=== PATIENT | male | born 1945 | race Caucasian/White ===

== ENCOUNTER 2018-04-16 08:09 | Day surgery (SDC) | payer MEDICARE, OTHER ==
[2018-04-16] VITALS (16 sets, daily range): BP systolic 99–140; BP diastolic 40–68
[~2018-04-16] VITALS: Ht 193 cm; Wt 101.7 kg
[~2018-04-16 08:09] MED LIST: ALLO100T PO; ASCO-261 PO; HYDR-3686 PO; INSU100V12 SQ; LACT10SO PO; LACT1CAP73 PO; LEVO125T PO; LORA-512 PO; LOSA50TA3 PO; OMEG1CAP2 PO; OMEP20TA5 PO; PROP10TA10 PO; RIFA550T PO; TEST150G2 TOP; URSO300C2 PO; ZINC50TA4 PO; ZOLP5TAB8 PO
[2018-04-16] MEDS ORDERED: normal saline 1000ml 1,000 ML IV PRN (08:30)
[2018-04-16 09:06] LABS: BASOPHILS % (AUTO) 0 % (0-1); EOSINOPHILS # (AUTO) 0.3 X10'3 (0-0.9); EOSINOPHILS % (AUTO) 9.3 % (0-6); HEMATOCRIT 26.7 % (42.0-52.0); HEMOGLOBIN 9.1 g/dl (14.0-17.9); LYMPHOCYTES # (AUTO) 0.8 X10'3 (1.1-4.8); LYMPHOCYTES % (AUTO) 27.8 % (21-51); MEAN CORPUSCULAR HEMOGLOBIN 32.4 PG (27.0-31.0); MEAN CORPUSCULAR HGB CONC 34.3 % (33.0-36.5); MEAN CORPUSCULAR VOLUME 94.6 FL (78-98); MEAN PLATELET VOLUME 9.7 FL (7.4-10.4); MONOCYTES # (AUTO) 0.3 X10'3 (0-0.9); MONOCYTES % (AUTO) 11.4 % (2-12); NEUTROPHILS # (AUTO) 1.5 X10'3 (1.8-7.7); NEUTROPHILS % (AUTO) 51.5 % (42-75); RED BLOOD COUNT 2.82 X10'6 (4.70-6.10); RED CELL DISTRIBUTION WIDTH 18.3 % (11.5-14.5); WHITE BLOOD COUNT 2.9 X10'3 (4.5-11.0)
[2018-04-16 09:47] LABS: INR 1.1 INR; PROTHROMBIN TIME 11.2 SECONDS (9.0-12.0)
[2018-04-16 09:50] LABS: PLATELET COUNT 43 X10'3 (140-440)
[2018-04-16] MEDS ORDERED: fentaNYL/PF 50MCG/1 ML 2ML syringe IV ONE (10:00)
[2018-04-16] MEDS ORDERED: MIDAZolam 1mg/ml 10ml vial IV ONE (10:00)
[2018-04-16 10:35] LABS: TOTAL CELLS COUNTED 100
[2018-04-16 10:39] LABS: ANISOCYTOSIS 2+; HYPOCHROMASIA 1+; PLATELET ESTIMATE DECREASED
[2018-04-16 10:40] LABS: TARGET CELLS 1+
[2018-04-16] MEDS ORDERED: normal saline 1000ml 1,000 ML IV SCH (11:38)
[2018-04-16] MEDS ORDERED: HYDROcodone/acetaminophen 5mg/325mg tablet PO PRN ×2 (11:40)
== END 2018-04-16 13:30 | disposition home or self-care (01) ==
LOC: SSTAY O 08:09
PROVIDERS: ATTEND Radiology Vascular & Interventional Radiology
DX: K73.8 Other chronic hepatitis, not elsewhere classified (principal); E83.118 Other hemochromatosis; D73.1 Hypersplenism; I10 Essential (primary) hypertension; J44.9 Chronic obstructive pulmonary disease, unspecified; E11.9 Type 2 diabetes mellitus without complications; G47.33 Obstructive sleep apnea (adult) (pediatric); E03.9 Hypothyroidism, unspecified; Z87.891 Personal history of nicotine dependence; Z79.4 Long term (current) use of insulin; Z98.890 Other specified postprocedural states; Z79.899 Other long term (current) drug therapy; Z88.8 Allergy status to other drugs, medicaments and biological substances
CPT/HCPCS: 36415; 47000; 76942; 85025; 85610; J2250; J3010; J7030; 88307; 88313; A4620

== ENCOUNTER 2018-06-30 10:33 | Inpatient (IN) | payer MEDICARE, OTHER ==
[~2018-06-30] VITALS: Ht 190.5 cm; Wt 98.0 kg
[2018-06-30] MEDS ORDERED: normal saline 1000ML IV soln IV ONE (10:50)
[2018-06-30 11:19] LABS: BASOPHILS % (AUTO) 0 % (0-1); EOSINOPHILS # (AUTO) 0.2 X10'3 (0-0.9); EOSINOPHILS % (AUTO) 5.6 % (0-6); HEMATOCRIT 22.9 % (42.0-52.0); HEMOGLOBIN 7.8 g/dl (14.0-17.9); LYMPHOCYTES # (AUTO) 1.1 X10'3 (1.1-4.8); MEAN CORPUSCULAR HEMOGLOBIN 31.1 PG (27.0-31.0); MEAN CORPUSCULAR HGB CONC 33.9 % (33.0-36.5); MEAN CORPUSCULAR VOLUME 91.7 FL (78-98); MEAN PLATELET VOLUME 9.3 FL (7.4-10.4); MONOCYTES # (AUTO) 0.5 X10'3 (0-0.9); MONOCYTES % (AUTO) 12.9 % (2-12); NEUTROPHILS # (AUTO) 2.1 X10'3 (1.8-7.7); NEUTROPHILS % (AUTO) 52.5 % (42-75); PLATELET COUNT 64 X10'3 (140-440); RED BLOOD COUNT 2.49 X10'6 (4.70-6.10); RED CELL DISTRIBUTION WIDTH 19.1 % (11.5-14.5)
[2018-06-30 11:31] LABS: INR 1.1 INR; PARTIAL THROMBOPLASTIN TIME 29 SECONDS (22-32); PROTHROMBIN TIME 11.1 SECONDS (9.0-12.0)
[2018-06-30 11:35] LABS: ALANINE AMINOTRANSFERASE 36 U/L (12-78); ALBUMIN 2.7 G/DL (3.4-5.0); ALBUMIN/GLOBULIN RATIO 0.8 (1.1-1.5); ALKALINE PHOSPHATASE 200 IU/L (46-116); ANION GAP 13 (8-16); ASPARTATE AMINO TRANSFERASE 31 U/L (10-37); BILIRUBIN,TOTAL 1.9 MG/DL (0.1-1.0); BLOOD UREA NITROGEN 70 MG/DL (7-18); BUN/CREATININE RATIO 23.3 (5.4-32.0); CALCIUM 8.1 MG/DL (8.5-10.1); CHLORIDE 108 MMOL/L (99-107); GLUCOSE 144 MG/DL (70-104); MAGNESIUM 1.8 MG/DL (1.5-2.4); POTASSIUM 4.9 MMOL/L (3.5-5.1); SODIUM 139 MMOL/L (135-145); TOTAL CARBON DIOXIDE 18.3 MMOL/L (24-32); TOTAL PROTEIN 6.1 G/DL (6.4-8.2); eGFR 21 ML/MIN
[2018-06-30 12:19] LABS: CLARITY,URINE CLEAR (Clear); COLOR,URINE YELLOW (Yellow); GLUCOSE, URINE NEGATIVE (Neg); KETONES,URINE NEGATIVE (Neg); LEUKOCYTE ESTERASE ,URINE NEGATIVE (Neg); NITRITES, URINE NEGATIVE (Neg); OCCULT BLOOD,URINE NEGATIVE (Neg); PROTEIN,URINE NEGATIVE (Neg); UROBILINOGEN,URINE 0.2 E.U/dL (0.2-1.0)
[2018-06-30 12:20] LABS: NUCLEATED RED BLOOD CELLS 2 /100WBC (0-0); TOTAL CELLS COUNTED 100
[2018-06-30] MEDS ORDERED: FURO20TA4 PO (12:21)
[2018-06-30 12:22] LABS: ANISOCYTOSIS 2+; HYPOCHROMASIA 1+; PLATELET ESTIMATE NORMAL; TARGET CELLS 1+
[2018-06-30 12:23] LABS: SCHISTOCYTES FEW
[2018-06-30 12:24] LABS: GIANT PLATELET FEW; LARGE PLATELETS FEW
[2018-06-30] MEDS ORDERED: SAXA5TAB PO (12:26)
[2018-06-30 12:32] LABS: UA COLLECTION TYPE URINAL
[2018-06-30] MEDS ORDERED: magnesium Cl slow-release 64mg tablet PO PRN (14:20)
[2018-06-30] MEDS ORDERED: magnesium 1gm/100ml D5W IVPB 100 ML IV PRN (14:20)
[2018-06-30] MEDS ORDERED: mag hydrox/Alum hydrox/simeth 30ml oral suspension PO PRN (14:20)
[2018-06-30] MEDS ORDERED: magnesium 4gm in 100ml NS 100 ML IV PRN (14:20)
[2018-06-30] MEDS ORDERED: magnesium hydroxide 30ml (MOM) UD suspension PO PRN (14:20)
[2018-06-30] MEDS ORDERED: potassium Cl 20 mEq SR tablet PO PRN ×2 (14:20)
[2018-06-30] MEDS ORDERED: acetaminophen 325mg tablet PO PRN (14:20)
[2018-06-30] MEDS ORDERED: ondansetron/PF 4mg/2ml inj IV PRN (14:20)
[2018-06-30] MEDS ORDERED: potassium Cl 40MEQ/NS 500ml 500 ML IV PRN ×2 (14:20)
[2018-06-30] MEDS ORDERED: MESSAGE TO PHARMACY PO ONE (14:30)
[2018-06-30] MEDS ORDERED: insulin Lispro (HumaLOG) vial - multi-dose SQ SCH (14:30)
[2018-06-30] MEDS ORDERED: dextrose 50%-water 50ml dispensing syringe IV PRN ×2 (14:30)
[2018-06-30] MEDS ORDERED: dextrose ORAL solution 15 GM/59 ML bottle PO PRN ×2 (14:30)
[2018-06-30] MEDS ORDERED: glucagon, human recombinant 1mg kit SUBCUT PRN (14:30)
[2018-06-30] MEDS: sodium chloride 0.45% 1,000 ML IV SCH (14:51)
[2018-06-30 14:57] LABS: HEMOGLOBIN A1C 8.7 % (4.5-6.2)
[2018-06-30 16:15] VITALS: BP 109/54
[2018-06-30 18:00] VITALS: BP 110/47
[2018-06-30] MEDS: lactulose 20gm/30ml cup PO SCH (20:16)
[2018-06-30] MEDS: rifaximin 550mg tablet PO SCH (20:17)
[2018-06-30] MEDS: insulin glargine (Lantus) pen - multi-dose SQ SCH (20:45)
[2018-06-30 21:17] VITALS: BP 111/52
[2018-06-30 21:31] VITALS: BP 113/51
[2018-06-30 22:31] VITALS: BP 111/49
[2018-06-30 23:31] VITALS: BP 132/74
[2018-07-01] VITALS (9 sets, daily range): BP systolic 104–153; BP diastolic 40–67
[2018-07-01] MEDS: sodium chloride 0.45% 1,000 ML IV SCH (00:16)
[2018-07-01 05:45] LABS: HEMATOCRIT 28.2 % (42.0-52.0); HEMOGLOBIN 9.6 g/dl (14.0-17.9); MEAN CORPUSCULAR HGB CONC 34.1 % (33.0-36.5); MEAN PLATELET VOLUME 9.9 FL (7.4-10.4); RED CELL DISTRIBUTION WIDTH 17.7 % (11.5-14.5); WHITE BLOOD COUNT 2.7 X10'3 (4.5-11.0)
[2018-07-01 05:56] LABS: ALBUMIN 2.8 G/DL (3.4-5.0); ANION GAP 11 (8-16); BLOOD UREA NITROGEN 52 MG/DL (7-18); BUN/CREATININE RATIO 28.7 (5.4-32.0); CALCIUM 8.2 MG/DL (8.5-10.1); CHLORIDE 112 MMOL/L (99-107); CREATININE 1.81 MG/DL (0.60-1.10); GLUCOSE 93 MG/DL (70-104); MAGNESIUM 1.8 MG/DL (1.5-2.4); SODIUM 141 MMOL/L (135-145); TOTAL CARBON DIOXIDE 17.6 MMOL/L (24-32); eGFR 37 ML/MIN
[2018-07-01 06:14] LABS: PLATELET COUNT 41 X10'3 (140-440)
[2018-07-01] MEDS ORDERED: pantoprazole 40mg Tablet.DR PO SCH (07:30)
[2018-07-01] MEDS: lactulose 20gm/30ml cup PO SCH ×5 (07:44→23:51)
[2018-07-01] MEDS: rifaximin 550mg tablet PO SCH ×2 (07:45→21:08)
[2018-07-01] MEDS: nystatin 15 GM powder TP SCH ×3 (07:46→21:09)
[2018-07-01] MEDS: levoTHYROXINE 175mcg tablet PO SCH (07:46)
[2018-07-01] MEDS: K and/or MAG REPLACEMENT MC SCH (07:46)
[2018-07-01] MEDS: sodium bicarbonate (8.4%) inj. 100 MEQ in sodium chloride 0.45% 1,000 ML IV SCH ×2 (10:29→21:16)
[2018-07-01] MEDS ORDERED: Ursodiol 300mg capsule PO ONE (12:10)
[2018-07-01] MEDS ORDERED: octreotide 100mcg/1 ml ampule IV ONE (15:00)
[2018-07-01] MEDS: octreotide inj. 1,250 MCG in normal saline 250ml IV soln 243.75 ML IV SCH (17:51)
[2018-07-01] MEDS: pantoprazole 40MG/NS 100ML BAG 100 ML IV SCH ×2 (18:00→21:09)
[2018-07-01] MEDS: insulin glargine (Lantus) pen - multi-dose SQ SCH (21:00)
[2018-07-02] VITALS (16 sets, daily range): BP systolic 130–156; BP diastolic 57–79
[2018-07-02] MEDS: pantoprazole 40MG/NS 100ML BAG 100 ML IV SCH ×4 (01:11→16:00)
[2018-07-02] MEDS: lactulose 20gm/30ml cup PO SCH ×5 (04:17→19:03)
[2018-07-02 05:06] LABS: HEMOGLOBIN 11.2 g/dl (14.0-17.9); MEAN CORPUSCULAR HEMOGLOBIN 30.8 PG (27.0-31.0); MEAN CORPUSCULAR HGB CONC 33.8 % (33.0-36.5); MEAN CORPUSCULAR VOLUME 91.1 FL (78-98); MEAN PLATELET VOLUME 9.5 FL (7.4-10.4); PLATELET COUNT 63 X10'3 (140-440); RED BLOOD COUNT 3.63 X10'6 (4.70-6.10); RED CELL DISTRIBUTION WIDTH 18.3 % (11.5-14.5); WHITE BLOOD COUNT 4.4 X10'3 (4.5-11.0)
[2018-07-02 05:32] LABS: ANISOCYTOSIS 2+; PLATELET ESTIMATE DECREASED; SCHISTOCYTES FEW; SPHEROCYTES FEW; TARGET CELLS 1+
[2018-07-02 05:37] LABS: ALBUMIN 3.3 G/DL (3.4-5.0); ANION GAP 11 (8-16); BLOOD UREA NITROGEN 39 MG/DL (7-18); BUN/CREATININE RATIO 26.4 (5.4-32.0); CALCIUM 9.4 MG/DL (8.5-10.1); CHLORIDE 112 MMOL/L (99-107); CREATININE 1.48 MG/DL (0.60-1.10); GLUCOSE 141 MG/DL (70-104); MAGNESIUM 1.9 MG/DL (1.5-2.4); POTASSIUM 5.1 MMOL/L (3.5-5.1); SODIUM 144 MMOL/L (135-145); TOTAL CARBON DIOXIDE 21.2 MMOL/L (24-32); eGFR 47 ML/MIN
[2018-07-02] MEDS: K and/or MAG REPLACEMENT MC SCH (07:19)
[2018-07-02] MEDS: Ursodiol 300mg capsule PO SCH (07:19)
[2018-07-02] MEDS: rifaximin 550mg tablet PO SCH ×2 (07:20→19:03)
[2018-07-02] MEDS: levoTHYROXINE 175mcg tablet PO SCH (07:20)
[2018-07-02] MEDS: nystatin 15 GM powder TP SCH ×3 (07:34→21:28)
[2018-07-02] MEDS: sodium bicarbonate (8.4%) inj. 100 MEQ in sodium chloride 0.45% 1,000 ML IV SCH ×2 (07:35→16:24)
[2018-07-02] MEDS ORDERED: fentaNYL/PF 50MCG/1 ML 2ML syringe ONE (13:43)
[2018-07-02] MEDS ORDERED: LIDOcaine Viscous 15ml cup ONE (13:44)
[2018-07-02] MEDS ORDERED: MIDAZolam 5mg/5ml vial ONE (13:44)
[2018-07-02] MEDS: octreotide inj. 1,250 MCG in normal saline 250ml IV soln 243.75 ML IV SCH ×2 (16:00→17:12)
[2018-07-02] MEDS: insulin glargine (Lantus) pen - multi-dose SQ SCH (21:00)
[2018-07-03] VITALS: BP 130/57
[2018-07-03] MEDS: lactulose 20gm/30ml cup PO SCH ×3 (00:48→07:24)
[2018-07-03] MEDS: sodium bicarbonate (8.4%) inj. 100 MEQ in sodium chloride 0.45% 1,000 ML IV SCH (03:59)
[2018-07-03 05:09] LABS: HEMATOCRIT 25.8 % (42.0-52.0); HEMOGLOBIN 8.7 g/dl (14.0-17.9); MEAN CORPUSCULAR HEMOGLOBIN 30.7 PG (27.0-31.0); MEAN CORPUSCULAR HGB CONC 33.8 % (33.0-36.5); MEAN PLATELET VOLUME 10.3 FL (7.4-10.4); RED BLOOD COUNT 2.83 X10'6 (4.70-6.10); RED CELL DISTRIBUTION WIDTH 18.4 % (11.5-14.5)
[2018-07-03 05:25] LABS: ALBUMIN 2.7 G/DL (3.4-5.0); ANION GAP 10 (8-16); CALCIUM 8.5 MG/DL (8.5-10.1); CHLORIDE 114 MMOL/L (99-107); CREATININE 1.23 MG/DL (0.60-1.10); GLUCOSE 132 MG/DL (70-104); MAGNESIUM 1.7 MG/DL (1.5-2.4); POTASSIUM 4.6 MMOL/L (3.5-5.1); SODIUM 148 MMOL/L (135-145); TOTAL CARBON DIOXIDE 24.1 MMOL/L (24-32); eGFR 58 ML/MIN
[2018-07-03 05:38] LABS: PLATELET COUNT 37 X10'3 (140-440); WHITE BLOOD COUNT 1.5 X10'3 (4.5-11.0)
[2018-07-03 05:49] LABS: BLOOD UREA NITROGEN 35 MG/DL (7-18); BUN/CREATININE RATIO 28.5 (5.4-32.0)
[2018-07-03 07:14] VITALS: BP 150/71
[2018-07-03 07:15] VITALS: BP_SYST 139; BP_SYST 149; BP_SYST 150; BP_DIAS 61; BP_DIAS 68; BP_DIAS 71
[2018-07-03] MEDS: levoTHYROXINE 175mcg tablet PO SCH (07:22)
[2018-07-03] MEDS: Ursodiol 300mg capsule PO SCH (07:23)
[2018-07-03] MEDS: rifaximin 550mg tablet PO SCH (07:23)
[2018-07-03] MEDS: nystatin 15 GM powder TP SCH ×2 (07:23→12:33)
[2018-07-03] MEDS ORDERED: pantoprazole 40mg Tablet.DR PO SCH (07:30)
[2018-07-03] MEDS: K and/or MAG REPLACEMENT MC SCH (08:00)
[2018-07-03 11:32] VITALS: BP 111/63
[2018-07-03] MEDS ORDERED: lactulose 20gm/30ml cup PO SCH (14:00)
== END 2018-07-03 13:07 | disposition home health service (06) | DRG 432 ==
LOC: ER 10:33 → ED HOLD 14:16 → EDBEDREQ 15:18 → SUR 3N 16:00
PROVIDERS: ADMIT Family Medicine; ATTEND Internal Medicine
PROC: 30233N1 Transfusion of Nonautologous Red Blood Cells into Peripheral Vein, Percutaneous Approach (ICD-10-PCS; 2018-06-30)
PROC: 5A09357 Assistance with Respiratory Ventilation, Less than 24 Consecutive Hours, Continuous Positive Airway Pressure (ICD-10-PCS; 2018-07-01)
PROC: 30233N1 Transfusion of Nonautologous Red Blood Cells into Peripheral Vein, Percutaneous Approach (ICD-10-PCS; 2018-07-01)
PROC: 06L38CZ Occlusion of Esophageal Vein with Extraluminal Device, Via Natural or Artificial Opening Endoscopic (ICD-10-PCS; principal; 2018-07-02)
DX: K74.3 Primary biliary cirrhosis (principal); I85.01 Esophageal varices with bleeding; K76.6 Portal hypertension; N17.9 Acute kidney failure, unspecified; D61.818 Other pancytopenia; D62 Acute posthemorrhagic anemia; E87.2 Acidosis; K72.90 Hepatic failure, unspecified without coma; E86.0 Dehydration; M10.9 Gout, unspecified; Z66 Do not resuscitate; K29.70 Gastritis, unspecified, without bleeding; D69.59 Other secondary thrombocytopenia; E03.9 Hypothyroidism, unspecified; E11.9 Type 2 diabetes mellitus without complications; G47.30 Sleep apnea, unspecified; I10 Essential (primary) hypertension; J44.9 Chronic obstructive pulmonary disease, unspecified; K31.89 Other diseases of stomach and duodenum; K57.90 Diverticulosis of intestine, part unspecified, without perforation or abscess without bleeding; K64.9 Unspecified hemorrhoids; Z88.8 Allergy status to other drugs, medicaments and biological substances; Z79.899 Other long term (current) drug therapy
CPT/HCPCS: 36415; 43244; 70450; 71045; 80048; 80053; 81003; 82140; 82948; 83036; 83605; 83735; 84145; 84443; 85025; 85027; 85610; 85730; 86885; 86900; 86901; 86920; 87040; 87070; 93005; 94760; 96360; 97110; 97116; 97162; 99153; 99285; A4620; C9113; J1815; J2250; J2354; J3010; J7030; P9016

== ENCOUNTER 2018-07-13 14:09 | Inpatient (IN) | payer MEDICARE, OTHER ==
[~2018-07-13] VITALS: Ht 190.5 cm; Wt 77.0 kg
[~2018-07-13 14:09] MED LIST changes: -ASCO-261 PO; +FURO20TA4 PO; -LACT1CAP73 PO; -LORA-512 PO; +SAXA5TAB PO; -ZINC50TA4 PO; -ZOLP5TAB8 PO
[2018-07-13] MEDS ORDERED: normal saline 1000ML IV soln IVB ONE (14:25)
[2018-07-13] MEDS ORDERED: ondansetron/PF 4mg/2ml inj IV ONE (14:25)
[2018-07-13 14:49] LABS: PARTIAL THROMBOPLASTIN TIME 28 SECONDS (22-32); PROTHROMBIN TIME 10.6 SECONDS (9.0-12.0)
[2018-07-13 14:52] LABS: BASOPHILS % (AUTO) 1.5 % (0-1); EOSINOPHILS # (AUTO) 0.2 X10'3 (0-0.9); EOSINOPHILS % (AUTO) 5.8 % (0-6); HEMATOCRIT 28.1 % (42.0-52.0); HEMOGLOBIN 9.6 g/dl (14.0-17.9); LYMPHOCYTES # (AUTO) 0.7 X10'3 (1.1-4.8); LYMPHOCYTES % (AUTO) 24.2 % (21-51); MEAN CORPUSCULAR HEMOGLOBIN 31.3 PG (27.0-31.0); MEAN CORPUSCULAR HGB CONC 34.2 % (33.0-36.5); MEAN CORPUSCULAR VOLUME 91.5 FL (78-98); MEAN PLATELET VOLUME 8.1 FL (7.4-10.4); MONOCYTES # (AUTO) 0.2 X10'3 (0-0.9); MONOCYTES % (AUTO) 8.4 % (2-12); NEUTROPHILS # (AUTO) 1.9 X10'3 (1.8-7.7); NEUTROPHILS % (AUTO) 60.1 % (42-75); RED BLOOD COUNT 3.07 X10'6 (4.70-6.10)
[2018-07-13 14:55] LABS: ALANINE AMINOTRANSFERASE 35 U/L (12-78); ALBUMIN 3.2 G/DL (3.4-5.0); ALBUMIN/GLOBULIN RATIO 0.7 (1.1-1.5); ALKALINE PHOSPHATASE 219 IU/L (46-116); ANION GAP 12 (8-16); ASPARTATE AMINO TRANSFERASE 38 U/L (10-37); BILIRUBIN,TOTAL 2.3 MG/DL (0.1-1.0); BLOOD UREA NITROGEN 39 MG/DL (7-18); BUN/CREATININE RATIO 19.9 (5.4-32.0); CALCIUM 8.8 MG/DL (8.5-10.1); CHLORIDE 109 MMOL/L (99-107); CREATININE 1.96 MG/DL (0.60-1.10); GLUCOSE 165 MG/DL (70-104); POTASSIUM 4.9 MMOL/L (3.5-5.1); SODIUM 142 MMOL/L (135-145); TOTAL CARBON DIOXIDE 20.9 MMOL/L (24-32); TOTAL PROTEIN 7.5 G/DL (6.4-8.2); eGFR 34 ML/MIN
[2018-07-13] MEDS ORDERED: lactulose 20gm/30ml cup PO ONE (14:55)
[2018-07-13 15:21] LABS: PLATELET COUNT 40 X10'3 (140-440)
[2018-07-13 15:26] LABS: PLATELET ESTIMATE DECREASED; TOTAL CELLS COUNTED 100
[2018-07-13 15:27] LABS: ANISOCYTOSIS 2+; LARGE PLATELETS FEW
[2018-07-13 16:00] LABS: CLARITY,URINE CLEAR (Clear); COLOR,URINE YELLOW (Yellow); GLUCOSE, URINE NEGATIVE (Neg); KETONES,URINE NEGATIVE (Neg); LEUKOCYTE ESTERASE ,URINE NEGATIVE (Neg); NITRITES, URINE NEGATIVE (Neg); OCCULT BLOOD,URINE NEGATIVE (Neg); PROTEIN,URINE NEGATIVE (Neg); UROBILINOGEN,URINE 0.2 E.U/dL (0.2-1.0)
[2018-07-13 16:02] LABS: UA COLLECTION TYPE VOIDED
[2018-07-13] MEDS: normal saline 1000ml 1,000 ML IV SCH (16:21)
[2018-07-13] MEDS ORDERED: potassium Cl 20 mEq SR tablet PO PRN ×2 (16:25)
[2018-07-13] MEDS ORDERED: magnesium 4gm in 100ml NS 100 ML IV PRN (16:25)
[2018-07-13] MEDS ORDERED: morphine 2 MG/ML inj. syringe IV PRN ×2 (16:25)
[2018-07-13] MEDS ORDERED: acetaminophen 650mg rectal suppository RC PRN (16:25)
[2018-07-13] MEDS ORDERED: ondansetron/PF 4mg/2ml inj IV PRN (16:25)
[2018-07-13] MEDS ORDERED: potassium Cl 40MEQ/NS 500ml 500 ML IV PRN ×2 (16:25)
[2018-07-13] MEDS ORDERED: magnesium 1gm/100ml D5W IVPB 100 ML IV PRN (16:25)
[2018-07-13] MEDS ORDERED: dextrose ORAL solution 15 GM/59 ML bottle PO PRN ×2 (17:25)
[2018-07-13] MEDS ORDERED: insulin Lispro (HumaLOG) vial - multi-dose SQ SCH (17:25)
[2018-07-13] MEDS ORDERED: glucagon, human recombinant 1mg kit SUBCUT PRN (17:25)
[2018-07-13] MEDS ORDERED: MESSAGE TO PHARMACY PO ONE (17:25)
[2018-07-13] MEDS ORDERED: dextrose 50%-water 50ml dispensing syringe IV PRN ×2 (17:25)
[2018-07-13 18:00] VITALS: BP 140/69
[2018-07-13] MEDS: lactulose 20gm/30ml cup PO SCH (19:14)
[2018-07-13] MEDS ORDERED: insulin glargine (Lantus) pen - multi-dose SQ SCH (21:00)
[2018-07-13 22:00] VITALS: BP 137/66
[2018-07-14] MEDS: lactulose 20gm/30ml cup PO SCH ×2 (01:05→07:54)
[2018-07-14 02:00] VITALS: BP 118/54
[2018-07-14 05:58] LABS: ALANINE AMINOTRANSFERASE 32 U/L (12-78); ALBUMIN 3.1 G/DL (3.4-5.0); ALKALINE PHOSPHATASE 202 IU/L (46-116); ANION GAP 10 (8-16); ASPARTATE AMINO TRANSFERASE 41 U/L (10-37); BILIRUBIN,TOTAL 3.4 MG/DL (0.1-1.0); BLOOD UREA NITROGEN 34 MG/DL (7-18); BUN/CREATININE RATIO 21.7 (5.4-32.0); CALCIUM 9.1 MG/DL (8.5-10.1); CHLORIDE 113 MMOL/L (99-107); CREATININE 1.57 MG/DL (0.60-1.10); GLUCOSE 93 MG/DL (70-104); MAGNESIUM 1.9 MG/DL (1.5-2.4); POTASSIUM 4.4 MMOL/L (3.5-5.1); SODIUM 145 MMOL/L (135-145); TOTAL CARBON DIOXIDE 21.8 MMOL/L (24-32); eGFR 44 ML/MIN
[2018-07-14 06:00] VITALS: BP 122/59
[2018-07-14 06:02] LABS: ALBUMIN/GLOBULIN RATIO 0.8 (1.1-1.5); TOTAL PROTEIN 7.1 G/DL (6.4-8.2)
[2018-07-14 06:05] LABS: HEMATOCRIT 26.9 % (42.0-52.0); HEMOGLOBIN 9.2 g/dl (14.0-17.9); MEAN CORPUSCULAR HEMOGLOBIN 31.5 PG (27.0-31.0); MEAN CORPUSCULAR HGB CONC 34.3 % (33.0-36.5); MEAN CORPUSCULAR VOLUME 91.8 FL (78-98); MEAN PLATELET VOLUME 8.8 FL (7.4-10.4); RED BLOOD COUNT 2.93 X10'6 (4.70-6.10); WHITE BLOOD COUNT 2.2 X10'3 (4.5-11.0)
[2018-07-14 06:10] LABS: PLATELET COUNT 34 X10'3 (140-440)
[2018-07-14 07:01] LABS: TOTAL CELLS COUNTED 100
[2018-07-14 07:02] LABS: ANISOCYTOSIS 2+; LARGE PLATELETS FEW; PLATELET ESTIMATE DECREASED
[2018-07-14] MEDS ORDERED: K and/or MAG REPLACEMENT MC SCH (08:00)
[2018-07-14] MEDS ORDERED: Ursodiol 300mg capsule PO SCH (08:00)
[2018-07-14] MEDS ORDERED: OMEGA-3/DHA/EPA/FISH OIL 1 EACH CAPSULE.DR PO SCH (08:00)
[2018-07-14] MEDS ORDERED: rifaximin 550mg tablet PO SCH (08:00)
[2018-07-14] MEDS ORDERED: levoTHYROXINE 175mcg tablet PO SCH (08:00)
[2018-07-14] MEDS ORDERED: pantoprazole 40mg Tablet.DR PO SCH (08:00)
[2018-07-14] MEDS: normal saline 1000ml 1,000 ML IV SCH (09:01)
== END 2018-07-14 15:35 | disposition home health service (06) | DRG 441 ==
LOC: ER 14:10 → ED HOLD 16:21 → PCU 3S 18:03 → CMPBEDREQ 19:29
PROVIDERS: ADMIT Family Medicine; ATTEND Internal Medicine
DX: K72.90 Hepatic failure, unspecified without coma (principal); K76.7 Hepatorenal syndrome; K76.6 Portal hypertension; K83.01 Primary sclerosing cholangitis; N17.9 Acute kidney failure, unspecified; I85.00 Esophageal varices without bleeding; K74.60 Unspecified cirrhosis of liver; D64.9 Anemia, unspecified; D69.59 Other secondary thrombocytopenia; E03.9 Hypothyroidism, unspecified; E11.22 Type 2 diabetes mellitus with diabetic chronic kidney disease; E86.0 Dehydration; M10.9 Gout, unspecified; R00.1 Bradycardia, unspecified; G47.33 Obstructive sleep apnea (adult) (pediatric); I12.9 Hypertensive chronic kidney disease with stage 1 through stage 4 chronic kidney disease, or unspecified chronic kidney disease; J44.9 Chronic obstructive pulmonary disease, unspecified; N18.3 Chronic kidney disease, stage 3 (moderate); Z88.8 Allergy status to other drugs, medicaments and biological substances; Z79.899 Other long term (current) drug therapy; Z79.4 Long term (current) use of insulin; Z79.890 Hormone replacement therapy; Z87.891 Personal history of nicotine dependence; Z80.52 Family history of malignant neoplasm of bladder
CPT/HCPCS: 36415; 70450; 71045; 80053; 81003; 82140; 82948; 83605; 83735; 85025; 85610; 85730; 87040; 87070; 93005; 94760; 96361; 96374; 99285; J1815; J2405; J7030

== ENCOUNTER 2018-09-04 09:15 | Day surgery (SDC) | payer MEDICARE, OTHER ==
[~2018-09-04] VITALS: Ht 190.5 cm; Wt 95.2 kg
[2018-09-04] VITALS (12 sets, daily range): BP systolic 107–124; BP diastolic 52–73
[~2018-09-04 09:15] MED LIST changes: -FURO20TA4 PO; -HYDR-3686 PO; -PROP10TA10 PO; -SAXA5TAB PO
[2018-09-04] MEDS ORDERED: diphenhydrAMINE 25mg capsule PO ONE (09:30)
[2018-09-04] MEDS ORDERED: acetaminophen 325mg tablet PO ONE (09:30)
[2018-09-04] MEDS ORDERED: dexamethasone sod phosphate 4mg/ml inj. IV ONE (09:30)
[2018-09-04] MEDS ORDERED: GLIP2.5T17 PO (10:25)
[2018-09-04] MEDS ORDERED: SAXA5TAB PO (10:25)
[2018-09-04] MEDS ORDERED: CHL4T PO (10:25)
== END 2018-09-04 17:30 | disposition home or self-care (01) ==
LOC: SSTAY O 09:15
PROVIDERS: ATTEND Internal Medicine Hematology & Oncology
DX: D64.9 Anemia, unspecified (principal); D69.59 Other secondary thrombocytopenia; F03.90 Unspecified dementia, unspecified severity, without behavioral disturbance, psychotic disturbance, mood disturbance, and anxiety; G47.33 Obstructive sleep apnea (adult) (pediatric); K72.90 Hepatic failure, unspecified without coma; E11.9 Type 2 diabetes mellitus without complications; H91.8X3 Other specified hearing loss, bilateral; Z87.2 Personal history of diseases of the skin and subcutaneous tissue; Z87.448 Personal history of other diseases of urinary system; Z87.891 Personal history of nicotine dependence; Z88.8 Allergy status to other drugs, medicaments and biological substances; Z79.899 Other long term (current) drug therapy; Z98.890 Other specified postprocedural states; Z80.52 Family history of malignant neoplasm of bladder
CPT/HCPCS: 36415; 36430; 86885; 86900; 86901; 86920; 86945; J1100; P9016; Q0163

== ENCOUNTER 2018-12-08 09:51 | Day surgery (SDC) | payer MEDICARE, OTHER ==
[2018-12-08] VITALS (11 sets, daily range): BP systolic 105–135; BP diastolic 55–70
[~2018-12-08] VITALS: Ht 190.5 cm; Wt 104.3 kg
[~2018-12-08 09:51] MED LIST changes: +CHL4T PO; +GLIP2.5T17 PO; -INSU100V12 SQ; +SAXA5TAB PO
[2018-12-08] MEDS ORDERED: AMIN30LI24 PO (10:08)
[2018-12-08] MEDS ORDERED: dexamethasone sod phosphate 4mg/ml inj. IV PRN (10:10)
[2018-12-08] MEDS ORDERED: acetaminophen 325mg tablet PO PRN (10:15)
[2018-12-08] MEDS ORDERED: diphenhydrAMINE 25mg capsule PO PRN (10:15)
== END 2018-12-08 16:50 | disposition home or self-care (01) ==
LOC: SSTAY O 09:51
PROVIDERS: ATTEND Internal Medicine Hematology & Oncology
DX: D64.9 Anemia, unspecified (principal); D69.59 Other secondary thrombocytopenia; Z88.8 Allergy status to other drugs, medicaments and biological substances; Z79.899 Other long term (current) drug therapy
CPT/HCPCS: 36415; 36430; 86870; 86880; 86885; 86900; 86901; 86902; 86905; 86920; 86922; 86945; P9016; Q0163; 86906

== ENCOUNTER 2019-02-12 08:01 | Day surgery (SDC) | payer MEDICARE, OTHER ==
[~2019-02-12] VITALS: Ht 190.5 cm; Wt 90.5 kg
[2019-02-12] VITALS (9 sets, daily range): BP systolic 132–151; BP diastolic 55–76
[~2019-02-12 08:01] MED LIST changes: +AMIN30LI24 PO
[2019-02-12] MEDS ORDERED: dexamethasone sod phosphate 4mg/ml inj. IV ONE (08:15)
[2019-02-12] MEDS ORDERED: acetaminophen 325mg tablet PO ONE (08:15)
[2019-02-12] MEDS ORDERED: diphenhydrAMINE 25mg capsule PO ONE (08:16)
== END 2019-02-12 13:52 | disposition home or self-care (01) ==
LOC: SSTAY O 08:01
PROVIDERS: ATTEND Internal Medicine Hematology & Oncology
DX: D50.9 Iron deficiency anemia, unspecified (principal)
CPT/HCPCS: 36415; 36430; 86870; 86880; 86885; 86900; 86901; 86902; 86905; 86922; 86945; P9016

== ENCOUNTER 2019-05-21 09:01 | Day surgery (SDC) | payer MEDICARE ==
[2019-05-21] VITALS (9 sets, daily range): BP systolic 109–168; BP diastolic 48–68
[~2019-05-21] VITALS: Ht 190.5 cm; Wt 85.4 kg
[~2019-05-21 09:01] MED LIST changes: +ALOG12.52 PO; +FURO-150 PO; +INSU100V12 SQ; +LEVO200T8 PO; +LORA10TA7 PO; +TEST1.25 TD
[2019-05-21] MEDS ORDERED: diphenhydrAMINE 25mg capsule PO ONE (09:15)
[2019-05-21] MEDS ORDERED: acetaminophen 325mg tablet PO ONE (09:15)
[2019-05-21] MEDS ORDERED: dexamethasone sod phosphate 10mg/ml inj IV ONE (09:15)
== END 2019-05-21 14:03 | disposition home or self-care (01) ==
LOC: SSTAY O 09:01
PROVIDERS: ATTEND Internal Medicine Hematology & Oncology
DX: D62 Acute posthemorrhagic anemia (principal); Z79.899 Other long term (current) drug therapy
CPT/HCPCS: 36415; 36430; 82948; 86885; 86900; 86901; 86902; 86922; 86945; P9016; J1100

== ENCOUNTER 2019-07-06 07:46 | Day surgery (SDC) | payer MEDICARE ==
[2019-07-06] VITALS (11 sets, daily range): BP systolic 110–127; BP diastolic 47–67
[~2019-07-06] VITALS: Ht 190.5 cm; Wt 85.2 kg
[2019-07-06] MEDS ORDERED: dexamethasone sod phosphate 4mg/ml inj. IV ONE (08:10)
[2019-07-06] MEDS ORDERED: acetaminophen 325mg tablet PO ONE (08:10)
[2019-07-06] MEDS ORDERED: diphenhydrAMINE 25mg capsule PO ONE (08:10)
--- NOTE | 2019-07-06 09:05 | NUR ---
Pt refused all premedications as ordered by Dr. Becerra. Pt informed of possible reactions due to not taking meds. Pt continued to insist that he did not need meds as this was his fifth transfusion, never taken meds before and has not had any issues so far. Addendum: 07/06/19 at 1035 by Rolando Garrison RN Amended: Links added.
== END 2019-07-06 14:00 | disposition home or self-care (01) ==
LOC: SSTAY O 07:46
PROVIDERS: ATTEND Internal Medicine Hematology & Oncology
DX: D64.9 Anemia, unspecified (principal); Z79.899 Other long term (current) drug therapy; K74.60 Unspecified cirrhosis of liver; G47.33 Obstructive sleep apnea (adult) (pediatric); K72.90 Hepatic failure, unspecified without coma; E11.9 Type 2 diabetes mellitus without complications
CPT/HCPCS: 36415; 36430; 86885; 86900; 86901; 86902; 86922; 86945; J1100; P9016; Q0163

== ENCOUNTER 2019-07-07 07:52 | Emergency (ER) | payer MEDICARE ==
[~2019-07-07] VITALS: Ht 190.5 cm; Wt 84.1 kg
[~2019-07-07 07:52] MED LIST changes: -CHL4T PO; -OMEG1CAP2 PO; -TEST150G2 TOP
[2019-07-07] MEDS ORDERED: normal saline 1000ML IV soln IVB ONE (08:15)
[2019-07-07 08:49] LABS: EOSINOPHILS # (AUTO) 0.3 X10'3 (0-0.9); EOSINOPHILS % (AUTO) 5.8 % (0-6); HEMATOCRIT 30.2 % (42.0-52.0); HEMOGLOBIN 10.3 g/dl (14.0-17.9); LYMPHOCYTES # (AUTO) 0.8 X10'3 (1.1-4.8); LYMPHOCYTES % (AUTO) 17.3 % (21-51); MEAN CORPUSCULAR HEMOGLOBIN 31.7 PG (27.0-31.0); MEAN CORPUSCULAR HGB CONC 34.1 g/dL (33.0-36.5); MEAN PLATELET VOLUME 11.6 FL (7.4-10.4); MONOCYTES # (AUTO) 0.5 X10'3 (0-0.9); MONOCYTES % (AUTO) 9.8 % (2-12); NEUTROPHILS # (AUTO) 3.2 X10'3 (1.8-7.7); NEUTROPHILS % (AUTO) 66.1 % (42-75); PLATELET COUNT 81 X10'3 (140-440); RED BLOOD COUNT 3.25 X10'6 (4.70-6.10); RED CELL DISTRIBUTION WIDTH 23.1 % (11.5-14.5); WHITE BLOOD COUNT 4.9 X10'3 (4.5-11.0)
[2019-07-07 09:01] LABS: ANISOCYTOSIS 3+; PLATELET ESTIMATE DECREASED
[2019-07-07 09:03] LABS: MICROCYTOSIS 1+
[2019-07-07 09:15] LABS: ALANINE AMINOTRANSFERASE 28 U/L (12-78); ALBUMIN 3.1 G/DL (3.4-5.0); ALBUMIN/GLOBULIN RATIO 0.7 (1.1-1.5); ALKALINE PHOSPHATASE 219 IU/L (46-116); ANION GAP 6 (8-16); ASPARTATE AMINO TRANSFERASE 31 U/L (10-37); BLOOD UREA NITROGEN 25 MG/DL (7-18); BUN/CREATININE RATIO 18.5 (5.4-32.0); CALCIUM 8.8 MG/DL (8.5-10.1); CHLORIDE 113 MMOL/L (99-107); CREATININE 1.35 MG/DL (0.60-1.10); GLUCOSE 152 MG/DL (70-104); SODIUM 144 MMOL/L (135-145); TOTAL CARBON DIOXIDE 24.8 MMOL/L (24-32); TOTAL PROTEIN 7.3 G/DL (6.4-8.2); eGFR 52 ML/MIN
[2019-07-07 09:50] VITALS: BP 126/55
[2019-08-06] MEDS ORDERED: FURO-150 PO (23:47)
[2019-08-06] MEDS ORDERED: OMEP40CA13 PO (23:47)
[2019-08-06] MEDS ORDERED: INSU100V12 SQ (23:47)
[2019-08-06] MEDS ORDERED: RIFA550T PO (23:47)
[2019-08-06] MEDS ORDERED: ONDA4TAB6 PO (23:47)
[2019-08-06] MEDS ORDERED: KEN0.1O TP (23:47)
[2019-08-06] MEDS ORDERED: ALOG25TA2 PO (23:47)
[2019-08-06] MEDS ORDERED: DEFE360T PO (23:47)
[2019-08-06] MEDS ORDERED: TEST1.25 TD (23:47)
[2019-08-06] MEDS ORDERED: NALT50TA PO (23:47)
[2019-08-06] MEDS ORDERED: SPIR50TA5 PO (23:47)
[2019-08-08] MEDS ORDERED: RIFA550T PO (12:58)
[2019-08-09] MEDS ORDERED: SPIR25TA PO (11:22)
[2019-08-09] MEDS ORDERED: ALLO300T8 PO (11:22)
[2019-08-09] MEDS ORDERED: ALOG12.52 PO (11:22)
[2019-08-09] MEDS ORDERED: LOSA25TA41 PO (11:22)
[2019-08-09] MEDS ORDERED: FURO-149 PO (11:22)
[2019-08-10] MEDS ORDERED: FURO20TA4 PO (13:25)
[2019-08-10] MEDS ORDERED: ALLO100T25 PO (13:25)
[2019-08-10] MEDS ORDERED: FERR325T28 PO (13:25)
== END 2019-07-07 09:51 | disposition home or self-care (01) ==
LOC: ER 07:52
DX: K52.9 Noninfective gastroenteritis and colitis, unspecified (principal); D64.9 Anemia, unspecified; D69.3 Immune thrombocytopenic purpura; J44.9 Chronic obstructive pulmonary disease, unspecified; I12.9 Hypertensive chronic kidney disease with stage 1 through stage 4 chronic kidney disease, or unspecified chronic kidney disease; E11.22 Type 2 diabetes mellitus with diabetic chronic kidney disease; N18.9 Chronic kidney disease, unspecified; G89.29 Other chronic pain; Z98.890 Other specified postprocedural states; Z79.899 Other long term (current) drug therapy; Z79.4 Long term (current) use of insulin
CPT/HCPCS: 36415; 80053; 85025; 99283; J7030

== ENCOUNTER 2019-08-03 07:51 | Day surgery (SDC) | payer MEDICARE ==
[~2019-08-03] VITALS: Ht 190.5 cm; Wt 87.5 kg
[2019-08-03] VITALS (8 sets, daily range): BP systolic 118–139; BP diastolic 56–77
[2019-08-03] MEDS ORDERED: diphenhydrAMINE 25mg capsule PO ONE (08:10)
[2019-08-03] MEDS ORDERED: acetaminophen 325mg tablet PO ONE (08:10)
[2019-08-03] MEDS ORDERED: dexamethasone sod phosphate 10mg/ml inj IV ONE (08:10)
== END 2019-08-03 13:45 | disposition home or self-care (01) ==
LOC: SSTAY O 07:51
PROVIDERS: ATTEND Internal Medicine Hematology & Oncology
DX: D62 Acute posthemorrhagic anemia (principal)
CPT/HCPCS: 36415; 36430; 86885; 86900; 86901; 86902; 86922; 86945; J1100; P9016; Q0163

== ENCOUNTER 2019-08-25 06:10 | Inpatient (IN) | payer MEDICARE ==
[~2019-08-25] VITALS: Ht 190.5 cm; Wt 87.6 kg
[2019-08-25] VITALS (15 sets, daily range): BP systolic 92–136; BP diastolic 47–66
[~2019-08-25 06:10] MED LIST changes: -ALLO100T PO; +ALLO100T25 PO; -AMIN30LI24 PO; +FERR325T28 PO; -FURO-150 PO; +FURO20TA4 PO; -GLIP2.5T17 PO; -INSU100V12 SQ; +KEN0.1O TP; -LEVO125T PO; -LOSA50TA3 PO; +NALT50TA PO; -OMEP20TA5 PO; +OMEP40CA13 PO; +ONDA4TAB6 PO; -SAXA5TAB PO; +SPIR25TA PO
[2019-08-25 07:00] LABS: BASOPHILS # (AUTO) 0.1 X10'3 (0-0.2); BASOPHILS % (AUTO) 1.4 % (0-1); EOSINOPHILS # (AUTO) 0.3 X10'3 (0-0.9); LYMPHOCYTES # (AUTO) 0.8 X10'3 (1.1-4.8)
[2019-08-25 07:02] LABS: EOSINOPHILS % (AUTO) 7.1 % (0-6); HEMATOCRIT 22.7 % (42.0-52.0); HEMOGLOBIN 7.6 g/dl (14.0-17.9); LYMPHOCYTES % (AUTO) 19.5 % (21-51); MEAN CORPUSCULAR HEMOGLOBIN 31.9 PG (27.0-31.0); MEAN CORPUSCULAR HGB CONC 33.6 g/dL (33.0-36.5); MEAN CORPUSCULAR VOLUME 94.9 FL (78-98); MEAN PLATELET VOLUME 9.8 FL (7.4-10.4); MONOCYTES # (AUTO) 0.3 X10'3 (0-0.9); MONOCYTES % (AUTO) 8.3 % (2-12); NEUTROPHILS # (AUTO) 2.6 X10'3 (1.8-7.7); NEUTROPHILS % (AUTO) 63.7 % (42-75); PLATELET COUNT 83 X10'3 (140-440); RED BLOOD COUNT 2.39 X10'6 (4.70-6.10); RED CELL DISTRIBUTION WIDTH 25.2 % (11.5-14.5); WHITE BLOOD COUNT 4.1 X10'3 (4.5-11.0)
[2019-08-25] MEDS ORDERED: pantoprazole 40 MG vial IV ONE (07:10)
[2019-08-25 07:15] LABS: ALANINE AMINOTRANSFERASE 19 U/L (12-78); ALBUMIN 2.7 G/DL (3.4-5.0); ALBUMIN/GLOBULIN RATIO 0.7 (1.1-1.5); ALKALINE PHOSPHATASE 240 IU/L (46-116); ANION GAP 8 (8-16); ASPARTATE AMINO TRANSFERASE 34 U/L (10-37); BILIRUBIN,TOTAL 1.6 MG/DL (0.1-1.0); BLOOD UREA NITROGEN 42 MG/DL (7-18); BUN/CREATININE RATIO 30.2 (5.4-32.0); CALCIUM 8.9 MG/DL (8.5-10.1); CHLORIDE 113 MMOL/L (99-107); CREATININE 1.39 MG/DL (0.60-1.10); GLUCOSE 169 MG/DL (70-104); POTASSIUM 4.6 MMOL/L (3.5-5.1); SODIUM 142 MMOL/L (135-145); TOTAL CARBON DIOXIDE 21.3 MMOL/L (24-32); TOTAL PROTEIN 6.6 G/DL (6.4-8.2); eGFR 50 ML/MIN
--- NOTE | 2019-08-25 07:15 | NUR ---
Left a message from Dr Wetzel to call Dr Hansen.
--- NOTE | 2019-08-25 07:19 | NUR ---
Called answering service for Dr Dumont to call.
[2019-08-25 07:22] LABS: TOTAL CELLS COUNTED 100
[2019-08-25 07:23] LABS: NUCLEATED RED BLOOD CELLS 1 /100WBC (0-0); PLATELET ESTIMATE DECREASED
[2019-08-25 07:24] LABS: ANISOCYTOSIS 3+
[2019-08-25 07:25] LABS: HYPOCHROMASIA 1+; LARGE PLATELETS FEW; POLYCHROMASIA FEW
--- NOTE | 2019-08-25 07:39 | NUR ---
PT CURRENTLY TAKING AMOXICILLIN FOR DENTAL INFECTION
--- NOTE | 2019-08-25 07:39 | NUR ---
Julia called back for Dr Hansen
[2019-08-25 08:09] LABS: CLARITY,URINE SLIGHTLY CLOUDY (Clear); COLOR,URINE YELLOW (Yellow); GLUCOSE, URINE NEGATIVE (Neg); KETONES,URINE NEGATIVE (Neg); LEUKOCYTE ESTERASE ,URINE NEGATIVE (Neg); NITRITES, URINE NEGATIVE (Neg); OCCULT BLOOD,URINE MODERATE (Neg); PROTEIN,URINE NEGATIVE (Neg); UROBILINOGEN,URINE 0.2 E.U/dL (0.2-1.0)
[2019-08-25] MEDS ORDERED: mag hydrox/Alum hydrox/simeth 30ml oral suspension PO PRN (08:35)
[2019-08-25] MEDS ORDERED: ondansetron/PF 4mg/2ml inj IV PRN (08:35)
[2019-08-25] MEDS ORDERED: magnesium 4gm in 100ml NS 100 ML IV PRN (08:35)
[2019-08-25] MEDS ORDERED: magnesium 2GM in 50ml NS 50 ML IV PRN (08:35)
[2019-08-25] MEDS ORDERED: magnesium hydroxide 30ml (MOM) UD suspension PO PRN (08:35)
[2019-08-25] MEDS ORDERED: potassium CL 10mEq/100ml bag 100 ML IV PRN ×2 (08:35)
[2019-08-25] MEDS ORDERED: acetaminophen 325mg tablet PO PRN ×2 (08:35)
[2019-08-25] MEDS ORDERED: magnesium Cl slow-release 64mg tablet PO PRN (08:35)
[2019-08-25] MEDS ORDERED: potassium Cl 20 mEq SR tablet PO PRN ×2 (08:35)
[2019-08-25 08:42] LABS: UA COLLECTION TYPE URINAL
[2019-08-25 08:48] LABS: SQUAMOUS EPITHELIAL CELL,UR MANY /LPF (FEW)
[2019-08-25 09:03] LABS: HYALINE CASTS 0-3 /LPF (NEGATIVE)
[2019-08-25 09:08] LABS: MUCUS STRANDS FEW /LPF (Neg); WBC,URINE 0-4 /HPF (0-4)
[2019-08-25 09:09] LABS: BACTERIA,URINE NONE SEEN /HPF (Neg)
[2019-08-25] MEDS: pantoprazole 40MG/NS 100ML BAG 100 ML IV SCH ×4 (09:13→20:58)
--- NOTE | 2019-08-25 10:15 | NUR ---
Patient in room [facility]. I have received report from balaji MALDONADO and had the opportunity to ask questions and assume patient care.
[2019-08-25] MEDS ORDERED: MIDAZolam 5mg/5ml vial ONE (12:35)
[2019-08-25] MEDS ORDERED: fentaNYL/PF 50MCG/1 ML 2ML syringe ONE (12:35)
[2019-08-25] MEDS ORDERED: LIDOcaine Viscous 15ml cup ONE (12:36)
--- NOTE | 2019-08-25 14:54 | NUR ---
Patient in room [facility]. I have received report from Elise MALDONADO and had the opportunity to ask questions and assume patient care.Patient arrived from GI lab sedated. Responsive to voice. VSS. will continue to monitor.
--- NOTE | 2019-08-25 17:26 | NUR ---
patient commenced on 2gm NA restricted diet . Seen by DR Reyes. For DC in am. See report on EGD in chart.
--- NOTE | 2019-08-25 18:10 | NUR ---
Problems reprioritized. Patient report given, questions answered & plan of care reviewed with Connie MALDONADO.
[2019-08-26] VITALS (10 sets, daily range): BP systolic 94–136; BP diastolic 34–49
[2019-08-26] MEDS: pantoprazole 40MG/NS 100ML BAG 100 ML IV SCH ×2 (01:22→07:24)
[2019-08-26 06:07] LABS: BASOPHILS % (AUTO) 1.1 % (0-1); EOSINOPHILS # (AUTO) 0.2 X10'3 (0-0.9); EOSINOPHILS % (AUTO) 9.5 % (0-6); LYMPHOCYTES # (AUTO) 0.4 X10'3 (1.1-4.8); LYMPHOCYTES % (AUTO) 24.2 % (21-51); MEAN CORPUSCULAR HEMOGLOBIN 32.1 PG (27.0-31.0); MEAN CORPUSCULAR HGB CONC 34.2 g/dL (33.0-36.5); MEAN CORPUSCULAR VOLUME 93.7 FL (78-98); MEAN PLATELET VOLUME 9.8 FL (7.4-10.4); MONOCYTES # (AUTO) 0.2 X10'3 (0-0.9); MONOCYTES % (AUTO) 10.7 % (2-12); NEUTROPHILS # (AUTO) 0.9 X10'3 (1.8-7.7); NEUTROPHILS % (AUTO) 54.5 % (42-75); PLATELET COUNT 60 X10'3 (140-440); RED BLOOD COUNT 2.09 X10'6 (4.70-6.10); RED CELL DISTRIBUTION WIDTH 24.8 % (11.5-14.5); WHITE BLOOD COUNT 1.7 X10'3 (4.5-11.0)
[2019-08-26 06:16] LABS: HEMATOCRIT 19.6 % (42.0-52.0); HEMOGLOBIN 6.7 g/dl (14.0-17.9)
[2019-08-26 06:18] LABS: ALBUMIN 2.2 G/DL (3.4-5.0); ANION GAP 5 (8-16); BLOOD UREA NITROGEN 41 MG/DL (7-18); BUN/CREATININE RATIO 28.7 (5.4-32.0); CALCIUM 8.1 MG/DL (8.5-10.1); CHLORIDE 113 MMOL/L (99-107); CREATININE 1.43 MG/DL (0.60-1.10); GLUCOSE 117 MG/DL (70-104); MAGNESIUM 1.7 MG/DL (1.5-2.4); POTASSIUM 4.4 MMOL/L (3.5-5.1); SODIUM 142 MMOL/L (135-145); TOTAL CARBON DIOXIDE 23.8 MMOL/L (24-32); eGFR 48 ML/MIN
--- NOTE | 2019-08-26 06:31 | NUR ---
Critical H/H this morning of 6.7/19.6. Dr. Kelly notified, ordered 1 unit of blood. Inform MD that patient needs Irradiated blood and can take a few hours before receiving it from [facility]. Blood blank called and inform of the order for 1unit. blood will arrive 4-6hrs from [facility]. Report given to oncoming nurse Kisha MALDONADO.
[2019-08-26 06:40] LABS: ANISOCYTOSIS 3+; MICROCYTOSIS 1+; PLATELET ESTIMATE DECREASED
[2019-08-26 06:41] LABS: SCHISTOCYTES FEW
[2019-08-26] MEDS: K and/or MAG REPLACEMENT MC SCH (07:26)
--- NOTE | 2019-08-26 08:39 | NUR ---
Rosalio Clements 360B: 24hr tele order is over..patient has been sinus rhythm/sinus ashu. will transfuse x1 unit today. would you like a new order for tele or is it okay to DC? alie [phone]
[2019-08-26] MEDS: triamcinolone acet 0.1% cream 15gm TP SCH ×2 (13:00→19:50)
[2019-08-26] MEDS: lactulose 20gm/30ml cup PO SCH ×2 (13:34→19:49)
[2019-08-26] MEDS: amoxicillin 250mg capsule PO SCH (16:35)
[2019-08-26] MEDS: pantoprazole 40mg Tablet.DR PO SCH ×2 (16:35→19:49)
[2019-08-26] MEDS ORDERED: GLIM2TAB3 PO (17:22)
--- NOTE | 2019-08-26 18:18 | NUR ---
Received report from ERICA Guillen. Patient is awake and alert on 2L NC, in no apparent distress. Call light and items of frequent use within reach. Will continue to monitor.
--- NOTE | 2019-08-26 18:27 | NUR ---
Problems reprioritized. Patient report given, questions answered & plan of care reviewed with ERICA Marcano.
[2019-08-26 19:24] LABS: HEMATOCRIT 23.8 % (42.0-52.0); HEMOGLOBIN 8.2 g/dl (14.0-17.9); MEAN CORPUSCULAR HEMOGLOBIN 32.1 PG (27.0-31.0); MEAN CORPUSCULAR HGB CONC 34.5 g/dL (33.0-36.5); MEAN PLATELET VOLUME 9.1 FL (7.4-10.4); PLATELET COUNT 77 X10'3 (140-440); RED BLOOD COUNT 2.56 X10'6 (4.70-6.10); RED CELL DISTRIBUTION WIDTH 23.1 % (11.5-14.5)
[2019-08-26] MEDS: Ursodiol 300mg capsule PO SCH (19:48)
[2019-08-26] MEDS: rifaximin 550mg tablet PO SCH (19:49)
[2019-08-26] MEDS ORDERED: non-formulary drug (Omeprazole (Prilosec) 1 CAP) PO SCH (20:00)
[2019-08-27] VITALS: BP 120/43
[2019-08-27] MEDS: amoxicillin 250mg capsule PO SCH ×2 (01:10→09:14)
[2019-08-27 05:38] LABS: EOSINOPHILS # (AUTO) 0.2 X10'3 (0-0.9); HEMOGLOBIN 7.2 g/dl (14.0-17.9); LYMPHOCYTES # (AUTO) 0.5 X10'3 (1.1-4.8); MONOCYTES # (AUTO) 0.2 X10'3 (0-0.9); WHITE BLOOD COUNT 1.9 X10'3 (4.5-11.0)
[2019-08-27 05:41] LABS: BASOPHILS % (AUTO) 1.1 % (0-1); EOSINOPHILS % (AUTO) 10.2 % (0-6); LYMPHOCYTES % (AUTO) 25.4 % (21-51); MEAN CORPUSCULAR HEMOGLOBIN 32.1 PG (27.0-31.0); MEAN CORPUSCULAR HGB CONC 34.4 g/dL (33.0-36.5); MEAN CORPUSCULAR VOLUME 93.3 FL (78-98); MONOCYTES % (AUTO) 9.1 % (2-12); NEUTROPHILS # (AUTO) 1.1 X10'3 (1.8-7.7); NEUTROPHILS % (AUTO) 54.2 % (42-75); PLATELET COUNT 63 X10'3 (140-440); RED BLOOD COUNT 2.23 X10'6 (4.70-6.10); RED CELL DISTRIBUTION WIDTH 23.4 % (11.5-14.5)
[2019-08-27 05:42] LABS: ALBUMIN 2.2 G/DL (3.4-5.0); ANION GAP 6 (8-16); BLOOD UREA NITROGEN 37 MG/DL (7-18); BUN/CREATININE RATIO 32.2 (5.4-32.0); CALCIUM 8.2 MG/DL (8.5-10.1); CHLORIDE 113 MMOL/L (99-107); CREATININE 1.15 MG/DL (0.60-1.10); GLUCOSE 94 MG/DL (70-104); MAGNESIUM 1.6 MG/DL (1.5-2.4); POTASSIUM 4.5 MMOL/L (3.5-5.1); SODIUM 142 MMOL/L (135-145); TOTAL CARBON DIOXIDE 23.4 MMOL/L (24-32); eGFR 62 ML/MIN
[2019-08-27 05:49] LABS: HEMATOCRIT 20.8 % (42.0-52.0)
--- NOTE | 2019-08-27 06:08 | NUR ---
Paged Dr. Reyes regarding critical H&H 7.2/20.8. stated that 7.2 seems to be baseline, and daytime Hospitalist can decide what needs to be done.
[2019-08-27 07:17] LABS: ANISOCYTOSIS 3+; PLATELET ESTIMATE DECREASED; TOTAL CELLS COUNTED 100
[2019-08-27 07:24] VITALS: BP 129/55
[2019-08-27] MEDS ORDERED: glimepiride 1 MG tablet PO SCH (08:00)
[2019-08-27] MEDS ORDERED: allopurinol 100mg tablet PO SCH (08:00)
[2019-08-27] MEDS ORDERED: loratadine 10mg tablet PO SCH (08:00)
[2019-08-27] MEDS ORDERED: furosemide 20MG tablet PO SCH (08:00)
[2019-08-27] MEDS ORDERED: levoTHYROXINE 100mcg tablet PO SCH (08:00)
[2019-08-27] MEDS ORDERED: naltrexone 50mg tablet PO SCH (08:00)
[2019-08-27] MEDS: K and/or MAG REPLACEMENT MC SCH (08:00)
[2019-08-27] MEDS ORDERED: spironolactone 25 MG tablet PO SCH (08:00)
[2019-08-27] MEDS ORDERED: linagliptin 5mg tablet PO SCH (08:00)
[2019-08-27] MEDS ORDERED: ondansetron 4mg rapidly disintigrating tab PO PRN (08:00)
[2019-08-27] MEDS: triamcinolone acet 0.1% cream 15gm TP SCH ×2 (08:00→09:58)
[2019-08-27] MEDS: Ursodiol 300mg capsule PO SCH (09:14)
[2019-08-27] MEDS: pantoprazole 40mg Tablet.DR PO SCH (09:15)
[2019-08-27] MEDS: rifaximin 550mg tablet PO SCH (09:15)
[2019-08-27] MEDS: lactulose 20gm/30ml cup PO SCH (09:18)
--- NOTE | 2019-08-27 09:31 | NUR ---
PT IS CONCERNED ABOUT GETTING [facility] TODAY.
--- NOTE | 2019-08-27 09:33 | NUR ---
MESSAGED ABOUT PT LEAVING. HE ORDERED A STAT H&H FOR THIS PT. HE STATES, IF HIS H&H ISN'T BACK UP HE WANTS HIM TO STAY AND RECEIVE ANOTHER UNIT OF BLOOD. INFORMED PT AND ORDERED STAT H&H.
--- NOTE | 2019-08-27 09:34 | NUR ---
WAS NOT ABLE TO SCAN PT'S MEDICATION- KENALOG. INFORMED PHARMACY AND PUT MED IN OUTBOX TO BE CORRECTED SO THAT I MAY SCAN AND ADMIN. PT STATES HE DID NOT BRING HIS TESTOSTERONE CREAM FROM HOME HE WILL TAKE IT WHEN HE IS DC'D. I WILL NOTIFY HOSP. WHEN HE ROUNDS AND GET IT DC'D
[2019-08-27 10:02] LABS: HEMOGLOBIN 7.5 g/dl (14.0-17.9); MEAN CORPUSCULAR HEMOGLOBIN 31.9 PG (27.0-31.0); MEAN CORPUSCULAR HGB CONC 34.1 g/dL (33.0-36.5); MEAN CORPUSCULAR VOLUME 93.7 FL (78-98); MEAN PLATELET VOLUME 9.1 FL (7.4-10.4); PLATELET COUNT 62 X10'3 (140-440); RED BLOOD COUNT 2.34 X10'6 (4.70-6.10); RED CELL DISTRIBUTION WIDTH 23.1 % (11.5-14.5)
[2019-08-27 11:00] VITALS: BP 124/52
--- NOTE | 2019-08-27 11:56 | NUR ---
Patient discharged home with family member, stable and appropriate. IV x2 removed. All belongings taken from room. No new medications ordered. Discharge instructions given and reviewed with patient, all questions answered and diabetes survival skills given with discharge packet.
== END 2019-08-27 11:57 | disposition home or self-care (01) | DRG 378 ==
LOC: ER 06:10 → CANBEDREQ 08:29 → ED HOLD 09:13 → INTOOBSV 09:13 → SUR 3N 09:41 → OBSVTOIN 08-27 09:00
PROVIDERS: ADMIT Hospitalist; ATTEND Family Medicine
PROC: 0DJ08ZZ Inspection of Upper Intestinal Tract, Via Natural or Artificial Opening Endoscopic (ICD-10-PCS; principal; 2019-08-25)
PROC: 30233N1 Transfusion of Nonautologous Red Blood Cells into Peripheral Vein, Percutaneous Approach (ICD-10-PCS; 2019-08-26)
DX: K92.1 Melena (principal); K76.6 Portal hypertension; K83.01 Primary sclerosing cholangitis; D62 Acute posthemorrhagic anemia; E11.9 Type 2 diabetes mellitus without complications; I10 Essential (primary) hypertension; J44.9 Chronic obstructive pulmonary disease, unspecified; K22.8 Other specified diseases of esophagus; K31.89 Other diseases of stomach and duodenum; E07.9 Disorder of thyroid, unspecified; K74.60 Unspecified cirrhosis of liver; Z80.52 Family history of malignant neoplasm of bladder; Z79.899 Other long term (current) drug therapy
CPT/HCPCS: 36415; 43235; 80048; 80053; 81001; 83735; 85025; 85027; 85610; 86885; 86900; 86901; 86902; 86922; 87081; 93005; 96374; 99152; 99285; A4620; C9113; G0378; J2250; J3010; J7040; P9016

== ENCOUNTER 2019-09-28 06:55 | Day surgery (SDC) | payer MEDICARE ==
[~2019-09-28] VITALS: Ht 190.5 cm; Wt 89.5 kg
[2019-09-28] VITALS (9 sets, daily range): BP systolic 125–160; BP diastolic 49–78
[~2019-09-28 06:55] MED LIST changes: -FERR325T28 PO; +GLIM2TAB3 PO
[2019-09-28] MEDS ORDERED: acetaminophen 325mg tablet PO ONE (07:05)
[2019-09-28] MEDS ORDERED: diphenhydrAMINE 25mg capsule PO ONE (07:05)
[2019-09-28] MEDS ORDERED: dexamethasone sod phosphate 4mg/ml inj. IV ONE (07:05)
== END 2019-09-28 12:55 | disposition home or self-care (01) ==
LOC: SSTAY O 06:55
PROVIDERS: ATTEND Internal Medicine Hematology & Oncology
PROC: 30233N1 Transfusion of Nonautologous Red Blood Cells into Peripheral Vein, Percutaneous Approach (ICD-10-PCS; principal; 2019-09-28)
DX: D62 Acute posthemorrhagic anemia (principal); E11.9 Type 2 diabetes mellitus without complications; K74.69 Other cirrhosis of liver; K76.6 Portal hypertension
CPT/HCPCS: 36415; 36430; 86870; 86885; 86900; 86901; 86902; 86922; 86945; P9016

== ENCOUNTER 2019-11-14 10:59 | Emergency (ER) | payer MEDICARE ==
[~2019-11-14] VITALS: Ht 190.5 cm; Wt 88.6 kg
[~2019-11-14 10:59] MED LIST changes: -GLIM2TAB3 PO; +GLIM2TAB6 PO
[2019-11-14] MEDS ORDERED: normal saline 1000ML IV soln IVB ONE (11:15)
[2019-11-14] MEDS ORDERED: fentaNYL/PF 50MCG/1 ML 2ML syringe IV ONE (11:15)
[2019-11-14] MEDS ORDERED: ondansetron/PF 4mg/2ml inj IV ONE (11:15)
[2019-11-14 11:52] LABS: ALANINE AMINOTRANSFERASE 15 U/L (12-78); ALBUMIN 2.4 G/DL (3.4-5.0); ALKALINE PHOSPHATASE 165 IU/L (46-116); ANION GAP 8 (8-16); ASPARTATE AMINO TRANSFERASE 31 U/L (10-37); BILIRUBIN,TOTAL 3.8 MG/DL (0.1-1.0); BLOOD UREA NITROGEN 24 MG/DL (7-18); BUN/CREATININE RATIO 20.5 (5.4-32.0); CALCIUM 7.9 MG/DL (8.5-10.1); CHLORIDE 112 MMOL/L (99-107); CREATININE 1.17 MG/DL (0.60-1.10); GLUCOSE 189 MG/DL (70-104); POTASSIUM 4.3 MMOL/L (3.5-5.1); SODIUM 142 MMOL/L (135-145); TOTAL CARBON DIOXIDE 22.5 MMOL/L (24-32); eGFR 61 ML/MIN
[2019-11-14 11:53] LABS: EOSINOPHILS # (AUTO) 0.3 X10'3 (0-0.9); HEMOGLOBIN 8.7 g/dl (14.0-17.9); MONOCYTES # (AUTO) 0.3 X10'3 (0-0.9); NEUTROPHILS # (AUTO) 1.5 X10'3 (1.8-7.7); RED CELL DISTRIBUTION WIDTH 23.1 % (11.5-14.5)
[2019-11-14 11:55] LABS: BASOPHILS % (AUTO) 0.5 % (0-1); EOSINOPHILS % (AUTO) 10.8 % (0-6); HEMATOCRIT 25.7 % (42.0-52.0); LYMPHOCYTES # (AUTO) 0.3 X10'3 (1.1-4.8); LYMPHOCYTES % (AUTO) 13.7 % (21-51); MEAN CORPUSCULAR HEMOGLOBIN 32.8 PG (27.0-31.0); MEAN CORPUSCULAR HGB CONC 33.9 g/dL (33.0-36.5); MEAN CORPUSCULAR VOLUME 96.8 FL (78-98); MEAN PLATELET VOLUME 8.8 FL (7.4-10.4); MONOCYTES % (AUTO) 13.2 % (2-12); NEUTROPHILS % (AUTO) 61.8 % (42-75); RED BLOOD COUNT 2.65 X10'6 (4.70-6.10); WHITE BLOOD COUNT 2.4 X10'3 (4.5-11.0)
[2019-11-14 11:56] LABS: ALBUMIN/GLOBULIN RATIO 0.7 (1.1-1.5)
[2019-11-14 11:57] LABS: LIPASE 188 U/L (73-393); TROPONIN I 0.04 NG/ML (0.0-0.05)
[2019-11-14 12:14] LABS: PLATELET COUNT 50 X10'3 (140-440)
[2019-11-14 12:23] LABS: TOTAL CELLS COUNTED 100
[2019-11-14 12:28] LABS: ANISOCYTOSIS 3+; PLATELET ESTIMATE DECREASED
[2019-11-14 12:29] LABS: SCHISTOCYTES FEW; TEAR DROP CELLS FEW
[2019-11-14] MEDS ORDERED: bisacodyl 5mg tablet.DR PO ONE (13:50)
[2019-11-14 14:27] VITALS: BP 144/75
[2019-11-17] MEDS ORDERED: PROP20TA6 PO (15:09)
[2019-11-17] MEDS ORDERED: LEVO150T8 PO (15:12)
[2019-11-17] MEDS ORDERED: ZINC220C12 PO (15:12)
[2019-11-17] MEDS ORDERED: NALT50TA PO (15:17)
[2019-11-17] MEDS ORDERED: FURO-150 PO (15:19)
[2019-11-17] MEDS ORDERED: LOSA50TA64 PO (15:21)
[2019-11-17] MEDS ORDERED: HYDR50TA65 PO (15:24)
[2019-11-19] MEDS ORDERED: HYDR-4353 PO (13:30)
== END 2019-11-14 14:29 | disposition home or self-care (01) ==
LOC: ER 11:00
DX: R10.32 Left lower quadrant pain (principal); I10 Essential (primary) hypertension; J44.9 Chronic obstructive pulmonary disease, unspecified; E11.9 Type 2 diabetes mellitus without complications; Z98.890 Other specified postprocedural states; Z79.899 Other long term (current) drug therapy
CPT/HCPCS: 36415; 71045; 74176; 80053; 83690; 84484; 85025; 93005; 96374; 96375; 99284; J2405; J3010; J7030

== ENCOUNTER 2020-01-13 08:01 | Day surgery (SDC) | payer MEDICARE ==
[2020-01-13] VITALS (11 sets, daily range): BP systolic 122–156; BP diastolic 45–72
[~2020-01-13] VITALS: Ht 190.5 cm; Wt 95.2 kg
[~2020-01-13 08:01] MED LIST changes: -ALOG12.52 PO; +FURO-150 PO; -FURO20TA4 PO; -GLIM2TAB6 PO; +HYDR-4353 PO; +HYDR50TA65 PO; -KEN0.1O TP; +LEVO150T8 PO; -LEVO200T8 PO; -LORA10TA7 PO; +LOSA50TA64 PO; -ONDA4TAB6 PO; +PROP20TA6 PO; +ZINC220C12 PO
[2020-01-13] MEDS ORDERED: dexamethasone sod phosphate 10mg/ml inj IV ONE (08:20)
[2020-01-13] MEDS ORDERED: acetaminophen 325mg tablet PO ONE (08:20)
[2020-01-13] MEDS ORDERED: diphenhydrAMINE 25mg capsule PO ONE (08:20)
[2020-01-13] MEDS ORDERED: dexamethasone sod phosphate 4mg/ml inj. IV ONE (09:00)
[2020-01-13] MEDS ORDERED: FLUC100T9 PO (12:57)
[2020-01-13] MEDS ORDERED: ONDA-103 PO (12:57)
== END 2020-01-13 13:45 | disposition home or self-care (01) ==
LOC: SSTAY O 08:01 → MED 3N 08:01 → SSTAY O 13:45
PROVIDERS: ATTEND Internal Medicine Hematology & Oncology
DX: D62 Acute posthemorrhagic anemia (principal); E83.111 Hemochromatosis due to repeated red blood cell transfusions; Z14.8 Genetic carrier of other disease
CPT/HCPCS: 36415; 36430; 86885; 86900; 86901; 86902; 86922; 86945; J1100; P9016; Q0163; 86920

== ENCOUNTER 2020-03-08 12:23 | Inpatient (IN) | payer MEDICARE ==
[~2020-03-08] VITALS: Ht 190.5 cm; Wt 91.0 kg
[~2020-03-08 12:23] MED LIST changes: +FLUC100T9 PO; -FURO-150 PO; -HYDR-4353 PO; +ONDA-103 PO; -ZINC220C12 PO
[2020-03-08 13:23] LABS: EOSINOPHILS # (AUTO) 0.2 X10'3 (0-0.9); LYMPHOCYTES # (AUTO) 0.4 X10'3 (1.1-4.8); MONOCYTES # (AUTO) 0.2 X10'3 (0-0.9); WHITE BLOOD COUNT 2.8 X10'3 (4.5-11.0)
[2020-03-08 13:25] LABS: BASOPHILS % (AUTO) 0.7 % (0-1); EOSINOPHILS % (AUTO) 6.1 % (0-6); HEMATOCRIT 25.3 % (42.0-52.0); HEMOGLOBIN 8.4 g/dl (14.0-17.9); LYMPHOCYTES % (AUTO) 15.5 % (21-51); MEAN CORPUSCULAR HEMOGLOBIN 33.1 PG (27.0-31.0); MEAN CORPUSCULAR HGB CONC 33.1 g/dL (33.0-36.5); MEAN CORPUSCULAR VOLUME 100.1 FL (78-98); MEAN PLATELET VOLUME 9.6 FL (7.4-10.4); MONOCYTES % (AUTO) 6.4 % (2-12); NEUTROPHILS % (AUTO) 71.3 % (42-75); RED BLOOD COUNT 2.52 X10'6 (4.70-6.10); RED CELL DISTRIBUTION WIDTH 22.6 % (11.5-14.5)
[2020-03-08] MEDS ORDERED: normal saline 1000ML IV soln IVB ONE ×2 (13:25→13:55)
[2020-03-08] MEDS ORDERED: insulin regular, human 10 units/0.1 ml syringe IV ONE (13:25)
[2020-03-08] MEDS ORDERED: insulin regular, human U-100 3ml vial - multi-dose IV ONE (13:30)
[2020-03-08 13:34] LABS: PARTIAL THROMBOPLASTIN TIME 33 SECONDS (22-32)
[2020-03-08 13:38] LABS: ALANINE AMINOTRANSFERASE 15 U/L (12-78); ALBUMIN 2.4 G/DL (3.4-5.0); ALBUMIN/GLOBULIN RATIO 0.6 (1.1-1.5); ALKALINE PHOSPHATASE 255 IU/L (46-116); ANION GAP 7 (8-16); ASPARTATE AMINO TRANSFERASE 25 U/L (10-37); BILIRUBIN,TOTAL 2.6 MG/DL (0.1-1.0); BLOOD UREA NITROGEN 46 MG/DL (7-18); BUN/CREATININE RATIO 20.3 (5.4-32.0); CALCIUM 8.3 MG/DL (8.5-10.1); CHLORIDE 102 MMOL/L (99-107); CREATININE 2.27 MG/DL (0.60-1.10); POTASSIUM 3.9 MMOL/L (3.5-5.1); SODIUM 135 MMOL/L (135-145); TOTAL CARBON DIOXIDE 25.6 MMOL/L (24-32); TOTAL PROTEIN 6.5 G/DL (6.4-8.2); eGFR 28 ML/MIN
[2020-03-08 13:40] LABS: GLUCOSE 591 MG/DL (70-104)
[2020-03-08 13:41] LABS: PLATELET COUNT 43 X10'3 (140-440)
[2020-03-08 13:51] LABS: ANISOCYTOSIS 3+; PLATELET ESTIMATE DECREASED; TOTAL CELLS COUNTED 100
[2020-03-08 13:52] LABS: HYPOCHROMASIA 1+; SCHISTOCYTES FEW; TEAR DROP CELLS FEW
[2020-03-08] MEDS ORDERED: metoclopramide 5 mg/ml inj IV ONE (13:55)
[2020-03-08] MEDS ORDERED: ALLO100T25 PO (14:54)
[2020-03-08] MEDS ORDERED: CHLO25TA22 PO (15:03)
[2020-03-08] MEDS ORDERED: FURO40TA4 PO (15:03)
[2020-03-08] MEDS ORDERED: LORA-660 PO (15:04)
[2020-03-08] MEDS ORDERED: potassium CL 10mEq/100ml bag 100 ML IV PRN ×2 (15:35)
[2020-03-08] MEDS ORDERED: magnesium 4gm in 100ml NS 100 ML IV PRN (15:35)
[2020-03-08] MEDS ORDERED: magnesium Cl slow-release 64mg tablet PO PRN (15:35)
[2020-03-08] MEDS ORDERED: ondansetron/PF 4mg/2ml inj IV PRN (15:35)
[2020-03-08] MEDS ORDERED: potassium Cl 20 mEq SR tablet PO PRN (15:35)
[2020-03-08] MEDS ORDERED: acetaminophen 325mg tablet PO PRN (15:35)
[2020-03-08] MEDS ORDERED: magnesium 2GM in 50ml NS 50 ML IV PRN (15:35)
[2020-03-08] MEDS: normal saline 1000ml 1,000 ML IV SCH (15:44)
[2020-03-08 17:29] LABS: HEMOGLOBIN A1C 10.1 % (4.5-6.2)
--- NOTE | 2020-03-08 18:50 | NUR ---
Patient's blood sugar is 400, patient is asymptomatic. MD notified. Awaiting response for coverage and hypo/hyperglycemic protocol.
--- NOTE | 2020-03-08 18:50 | NUR ---
Received report from Bolivar MALDONADO from ER. Transferred via eria. Patient transferred to bed with stand by assist. VSS. No respiratory distress. Patient asked for sandwich. Ate 100%.
[2020-03-08 20:00] VITALS: BP 130/46
[2020-03-08] MEDS: K and/or MAG REPLACEMENT MC SCH (20:00)
[2020-03-08] MEDS ORDERED: dextrose 50%-water 50ml dispensing syringe IV PRN ×2 (20:45)
[2020-03-08] MEDS ORDERED: glucagon, human recombinant 1mg kit SUBCUT PRN (20:45)
[2020-03-08] MEDS ORDERED: MESSAGE TO PHARMACY PO ONE (20:45)
[2020-03-08] MEDS ORDERED: dextrose ORAL solution 15 GM/59 ML bottle PO PRN ×2 (20:45)
[2020-03-08] MEDS: Ursodiol 300mg capsule PO SCH (21:01)
[2020-03-08] MEDS: rifaximin 550mg tablet PO SCH (21:01)
[2020-03-08] MEDS: propranolol 10mg tablet PO SCH (21:02)
[2020-03-08 21:03] VITALS: BP 116/51
[2020-03-08] MEDS: insulin Lispro (HumaLOG) vial - multi-dose SQ SCH (21:56)
[2020-03-08] MEDS: insulin glargine (Lantus) pen - multi-dose SQ SCH (21:57)
[2020-03-09] VITALS: BP_SYST 127; BP_SYST 131; BP_SYST 137; BP_DIAS 59; BP_DIAS 60
[2020-03-09] MEDS: normal saline 1000ml 1,000 ML IV SCH ×3 (01:34→21:34)
[2020-03-09 02:02] LABS: ALBUMIN 2.3 G/DL (3.4-5.0); ANION GAP 6 (8-16); BLOOD UREA NITROGEN 40 MG/DL (7-18); BUN/CREATININE RATIO 22.2 (5.4-32.0); CALCIUM 8.6 MG/DL (8.5-10.1); CHLORIDE 108 MMOL/L (99-107); GLUCOSE 368 MG/DL (70-104); MAGNESIUM 1.9 MG/DL (1.5-2.4); POTASSIUM 3.5 MMOL/L (3.5-5.1); SODIUM 141 MMOL/L (135-145); TOTAL CARBON DIOXIDE 27.5 MMOL/L (24-32); eGFR 37 ML/MIN
[2020-03-09 02:11] LABS: ANISOCYTOSIS 2+; HYPOCHROMASIA 1+; PLATELET ESTIMATE DECREASED; SCHISTOCYTES FEW
[2020-03-09 02:45] LABS: BASOPHILS % (AUTO) 0.4 % (0-1); EOSINOPHILS # (AUTO) 0.1 X10'3 (0-0.9); EOSINOPHILS % (AUTO) 5.2 % (0-6); HEMATOCRIT 24.6 % (42.0-52.0); HEMOGLOBIN 8.1 g/dl (14.0-17.9); LYMPHOCYTES # (AUTO) 0.4 X10'3 (1.1-4.8); LYMPHOCYTES % (AUTO) 16.8 % (21-51); MEAN CORPUSCULAR HEMOGLOBIN 32.7 PG (27.0-31.0); MEAN CORPUSCULAR VOLUME 99.1 FL (78-98); MEAN PLATELET VOLUME 8.9 FL (7.4-10.4); MONOCYTES # (AUTO) 0.2 X10'3 (0-0.9); MONOCYTES % (AUTO) 7.1 % (2-12); NEUTROPHILS # (AUTO) 1.7 X10'3 (1.8-7.7); NEUTROPHILS % (AUTO) 70.5 % (42-75); RED BLOOD COUNT 2.49 X10'6 (4.70-6.10); RED CELL DISTRIBUTION WIDTH 22.9 % (11.5-14.5); WHITE BLOOD COUNT 2.4 X10'3 (4.5-11.0)
[2020-03-09] MEDS ORDERED: temazepam 15mg capsule PO ONE (02:45)
[2020-03-09 03:08] LABS: PLATELET COUNT 32 X10'3 (140-440)
[2020-03-09 03:17] LABS: TOTAL CELLS COUNTED 100
--- NOTE | 2020-03-09 06:30 | NUR ---
Patient in room [facility]. I have received report from ERICA Cummins and had the opportunity to ask questions and assume patient care.
[2020-03-09 08:00] VITALS: BP_SYST 120; BP_SYST 126; BP_SYST 137; BP_SYST 147; BP_DIAS 58; BP_DIAS 60; BP_DIAS 61; BP_DIAS 64
[2020-03-09] MEDS: K and/or MAG REPLACEMENT MC SCH ×2 (08:00→20:00)
[2020-03-09] MEDS: insulin Lispro (HumaLOG) vial - multi-dose SQ SCH ×4 (08:44→21:09)
[2020-03-09] MEDS: Ursodiol 300mg capsule PO SCH ×2 (08:46→19:57)
[2020-03-09] MEDS: levoTHYROXINE 75mcg tablet PO SCH (08:46)
[2020-03-09] MEDS: rifaximin 550mg tablet PO SCH ×2 (08:47→19:57)
[2020-03-09] MEDS: pantoprazole 40mg Tablet.DR PO SCH (08:47)
[2020-03-09] MEDS: propranolol 10mg tablet PO SCH ×2 (08:47→19:58)
[2020-03-09] MEDS: allopurinol 300 MG tablet PO SCH (08:47)
[2020-03-09] MEDS: fluconazole 100mg tablet PO SCH (08:47)
[2020-03-09] MEDS: lactulose 20gm/30ml cup PO PRN ×2 (08:55→20:57)
--- NOTE | 2020-03-09 10:10 | NUR ---
pts , Carri - H: [phone] C: [phone] RN called back Carri to give her an update on pt. Pts expressed need to talk to Delivery Technician or Party Plan Sales Consultant about possibly getting care for the pt at home. RN let Delivery Technician know of wifes request.
[2020-03-09 11:00] VITALS: BP 136/52
--- NOTE | 2020-03-09 11:10 | NUR ---
Paged Dr. Cortez - Pt states pts Liver DrBreanna would like to talk to you about an update on pt when possible. Dr. Cosby [phone].
--- NOTE | 2020-03-09 12:23 | NUR ---
DM consult: Pt with A1c 10.1% seen at bedside. Pt reports he doesn't see an MD however sees the "head pharmacist at the [facility]" for diabetes management. Patient reports he takes his insulin per rx however had changes made to his rx 4-6 months ago, stating it was because his blood sugars were too getting low. Pt unsure if he takes short and/or long acting insulin although states he just takes insulin one time a day and checks his BG levels one time a day. Pt denies following any special diet for diabetes management. Pt very tired and appeared to be falling asleep during RD interview. Per records patient's A1c is up from 5.5% in August 2019. Pt would benefit from verbal education once more alert and oriented which pt agreed to. Written DM education and RD contact information left at patient's bed side. lime kiln worker present at bedside during most of RD interview. Pt endorses a good appetite and states he is getting full from meals. Pt denies food allergies however reports some difficulty with meals d/t sores in his mouth. Pt denies any texture modification or food preferences at this time. RD d/w dietary to visit pt for menu selection so patient can choose foods to his desire that go in line with current diet order. Pt encouraged to reach out to RD team for food preferences and f/u DM education. LBM 6/ documented as diarrhea, receiving Lactulose. Will continue to follow. Addendum: 03/09/20 at [address] Amended: Links added.
--- NOTE | 2020-03-09 17:24 | NUR ---
Student documentation: I have reviewed all interventions, assessments performed and documented by Sabi RAMOS from [facility] . Student Medication Administration: For all medication-passes, medications were reviewed, dispensed, administered and documented per hospital policy by Sabi RAMOS form [facility].
[2020-03-09] MEDS: amox tr/potassium clavulanate 500mg/125mg TAB PO SCH (17:28)
[2020-03-09 18:00] VITALS: BP 114/44
--- NOTE | 2020-03-09 18:20 | NUR ---
Patient in room [facility] 354A. I have received report from Juliette MALDONADO and had the opportunity to ask questions and assume patient care.
[2020-03-09 19:58] VITALS: BP 127/67
[2020-03-09] MEDS: insulin glargine (Lantus) pen - multi-dose SQ SCH (21:06)
[2020-03-10] VITALS: BP_SYST 120; BP_SYST 124; BP_SYST 130; BP_DIAS 50; BP_DIAS 56
--- NOTE | 2020-03-10 06:25 | NUR ---
Patient in room [facility]. I have received report from ERICA Cummins and had the opportunity to ask questions and assume patient care.
[2020-03-10 06:30] VITALS: BP_SYST 122; BP_SYST 146; BP_SYST 151; BP_DIAS 61; BP_DIAS 69; BP_DIAS 80
--- NOTE | 2020-03-10 06:35 | NUR ---
Patient refused to use urinal to measure output.
--- NOTE | 2020-03-10 06:46 | NUR ---
Problems reprioritized. Patient report given, questions answered & plan of care reviewed with Dilma RN.
[2020-03-10 06:57] LABS: BASOPHILS % (AUTO) 0.8 % (0-1); HEMOGLOBIN 7.8 g/dl (14.0-17.9); MONOCYTES # (AUTO) 0.3 X10'3 (0-0.9); NEUTROPHILS # (AUTO) 2.2 X10'3 (1.8-7.7); WHITE BLOOD COUNT 3.3 X10'3 (4.5-11.0)
[2020-03-10 06:59] LABS: EOSINOPHILS # (AUTO) 0.3 X10'3 (0-0.9); EOSINOPHILS % (AUTO) 8.1 % (0-6); HEMATOCRIT 23.2 % (42.0-52.0); LYMPHOCYTES # (AUTO) 0.5 X10'3 (1.1-4.8); LYMPHOCYTES % (AUTO) 16.4 % (21-51); MEAN CORPUSCULAR HEMOGLOBIN 33.6 PG (27.0-31.0); MEAN CORPUSCULAR HGB CONC 33.8 g/dL (33.0-36.5); MEAN CORPUSCULAR VOLUME 99.5 FL (78-98); MEAN PLATELET VOLUME 10.8 FL (7.4-10.4); MONOCYTES % (AUTO) 8.3 % (2-12); NEUTROPHILS % (AUTO) 66.4 % (42-75); RED BLOOD COUNT 2.33 X10'6 (4.70-6.10)
[2020-03-10 07:04] LABS: ALBUMIN 2.2 G/DL (3.4-5.0); ANION GAP 7 (8-16); BLOOD UREA NITROGEN 31 MG/DL (7-18); BUN/CREATININE RATIO 21.4 (5.4-32.0); CALCIUM 8.1 MG/DL (8.5-10.1); CHLORIDE 110 MMOL/L (99-107); CREATININE 1.45 MG/DL (0.60-1.10); GLUCOSE 97 MG/DL (70-104); MAGNESIUM 1.7 MG/DL (1.5-2.4); POTASSIUM 3.4 MMOL/L (3.5-5.1); SODIUM 142 MMOL/L (135-145); TOTAL CARBON DIOXIDE 25.5 MMOL/L (24-32); eGFR 48 ML/MIN
[2020-03-10] MEDS: K and/or MAG REPLACEMENT MC SCH (07:28)
[2020-03-10] MEDS: normal saline 1000ml 1,000 ML IV SCH (07:34)
[2020-03-10 08:13] LABS: PLATELET COUNT 46 X10'3 (140-440)
[2020-03-10] MEDS: potassium Cl 20 mEq SR tablet PO PRN ×2 (08:14→12:03)
[2020-03-10] MEDS: Ursodiol 300mg capsule PO SCH (08:14)
[2020-03-10] MEDS: propranolol 10mg tablet PO SCH (08:14)
[2020-03-10] MEDS: pantoprazole 40mg Tablet.DR PO SCH (08:14)
[2020-03-10] MEDS: rifaximin 550mg tablet PO SCH (08:15)
[2020-03-10] MEDS: allopurinol 300 MG tablet PO SCH (08:15)
[2020-03-10] MEDS: fluconazole 100mg tablet PO SCH (08:15)
[2020-03-10] MEDS: levoTHYROXINE 75mcg tablet PO SCH (08:15)
[2020-03-10] MEDS: insulin Lispro (HumaLOG) vial - multi-dose SQ SCH ×2 (08:33→13:17)
[2020-03-10] MEDS: amox tr/potassium clavulanate 500mg/125mg TAB PO SCH (09:05)
[2020-03-10] MEDS ORDERED: AMOX1TAB15 PO (10:39)
[2020-03-10 11:00] VITALS: BP 112/54
[2020-03-10 11:45] LABS: ANISOCYTOSIS 3+; PLATELET ESTIMATE DECREASED; POLYCHROMASIA 1+; SCHISTOCYTES FEW
--- NOTE | 2020-03-10 14:30 | NUR ---
DC inst provided to pt. IV DC'd, tip intact. All belongings sent w/pt. WC to front lobby.
== END 2020-03-10 14:29 | disposition home health service (06) | DRG 683 ==
LOC: ER 12:23 → ED HOLD 15:34 → SUR 3N 18:50
PROVIDERS: ADMIT Internal Medicine; ATTEND Internal Medicine
DX: N17.9 Acute kidney failure, unspecified (principal); D61.818 Other pancytopenia; T50.2X5A Adverse effect of carbonic-anhydrase inhibitors, benzothiadiazides and other diuretics, initial encounter; E86.0 Dehydration; E03.9 Hypothyroidism, unspecified; D69.6 Thrombocytopenia, unspecified; D63.8 Anemia in other chronic diseases classified elsewhere; E11.22 Type 2 diabetes mellitus with diabetic chronic kidney disease; E11.65 Type 2 diabetes mellitus with hyperglycemia; I13.10 Hypertensive heart and chronic kidney disease without heart failure, with stage 1 through stage 4 chronic kidney disease, or unspecified chronic kidney disease; J44.9 Chronic obstructive pulmonary disease, unspecified; K05.10 Chronic gingivitis, plaque induced; K74.60 Unspecified cirrhosis of liver; R26.89 Other abnormalities of gait and mobility; N18.9 Chronic kidney disease, unspecified; Z66 Do not resuscitate; K21.9 Gastro-esophageal reflux disease without esophagitis; M10.9 Gout, unspecified; Z79.84 Long term (current) use of oral hypoglycemic drugs; Z80.52 Family history of malignant neoplasm of bladder; Y92.89 Other specified places as the place of occurrence of the external cause
CPT/HCPCS: 36415; 71045; 80048; 80053; 82948; 83036; 83735; 84484; 85025; 85610; 85730; 87081; 93005; 97116; 97161; 97530; 99285; G0378; J1815; J2765; J7030

== ENCOUNTER 2020-03-17 08:54 | Day surgery (SDC) | payer MEDICARE ==
[2020-03-17] VITALS (9 sets, daily range): BP systolic 123–150; BP diastolic 56–76
[~2020-03-17] VITALS: Ht 190.5 cm; Wt 96.1 kg
[~2020-03-17 08:54] MED LIST changes: +AMOX1TAB15 PO; +CHLO25TA22 PO; -HYDR50TA65 PO; +LORA-660 PO; -LOSA50TA64 PO; -NALT50TA PO; -SPIR25TA PO; -TEST1.25 TD
[2020-03-17] MEDS ORDERED: diphenhydrAMINE 25mg capsule PO ONE (09:15)
[2020-03-17] MEDS ORDERED: dexamethasone sod phosphate 4mg/ml inj. IV ONE (09:15)
[2020-03-17] MEDS ORDERED: acetaminophen 325mg tablet PO ONE (09:15)
--- NOTE | 2020-03-17 14:25 | NUR ---
SEE BLOOD TRANSFUSION RECORD Addendum: 03/17/20 at 1426 by Yessica Thao RN Amended: Links added.
== END 2020-03-17 14:10 | disposition home or self-care (01) ==
LOC: SSTAY O 08:54
PROVIDERS: ATTEND Internal Medicine Hematology & Oncology
DX: D62 Acute posthemorrhagic anemia (principal)
CPT/HCPCS: 36415; 36430; 86885; 86900; 86901; 86922; 86945; J1100; P9016; Q0163

== ENCOUNTER 2020-03-23 08:09 | Day surgery (SDC) | payer MEDICARE ==
[~2020-03-23] VITALS: Ht 190.5 cm; Wt 101.3 kg
[2020-03-23] MEDS ORDERED: albumin 25% 100mL bottle x 1 IV PRN (08:35)
[2020-03-23] MEDS ORDERED: normal saline 1000ml 1,000 ML IV PRN (08:35)
[2020-03-23 08:45] VITALS: BP 133/76
[2020-03-23 09:30] VITALS: BP 121/61
[2020-03-23 09:45] VITALS: BP 137/80
[2020-03-23 10:00] VITALS: BP 141/77
[2020-03-23 10:15] VITALS: BP 138/70
[2020-03-23 10:30] VITALS: BP 125/68
== END 2020-03-23 11:00 | disposition home or self-care (01) ==
LOC: SSTAY O 08:09
PROVIDERS: ATTEND Radiology Diagnostic Radiology
DX: R18.8 Other ascites (principal); E03.9 Hypothyroidism, unspecified; E11.9 Type 2 diabetes mellitus without complications; K21.9 Gastro-esophageal reflux disease without esophagitis; M10.9 Gout, unspecified; K74.60 Unspecified cirrhosis of liver; I10 Essential (primary) hypertension; D69.6 Thrombocytopenia, unspecified; E83.111 Hemochromatosis due to repeated red blood cell transfusions; Z79.899 Other long term (current) drug therapy; Z80.52 Family history of malignant neoplasm of bladder
CPT/HCPCS: 49083; J7030; P9047

== ENCOUNTER 2020-04-06 16:57 | Emergency (ER) | payer MEDICARE ==
[~2020-04-06] VITALS: Ht 190.5 cm; Wt 106.0 kg
[~2020-04-06 16:57] MED LIST changes: -AMOX1TAB15 PO; +CEFD300C3 PO
--- NOTE | 2020-04-06 18:20 | NUR ---
Dr Donovan at bedside with US to determine if pt is a candidate for paracentesis. Pt is not at this time and is to be referred back to his Friday appt to have it done.
[2020-04-06 19:01] VITALS: BP 146/85
== END 2020-04-06 19:02 | disposition home or self-care (01) ==
LOC: ER 16:58
DX: R18.8 Other ascites (principal); K72.90 Hepatic failure, unspecified without coma; N18.9 Chronic kidney disease, unspecified; E03.9 Hypothyroidism, unspecified; K74.3 Primary biliary cirrhosis; J44.9 Chronic obstructive pulmonary disease, unspecified; E11.9 Type 2 diabetes mellitus without complications; Z98.890 Other specified postprocedural states; Z79.899 Other long term (current) drug therapy; I12.9 Hypertensive chronic kidney disease with stage 1 through stage 4 chronic kidney disease, or unspecified chronic kidney disease
CPT/HCPCS: 99284

== ENCOUNTER 2020-04-11 07:15 | Day surgery (SDC) | payer MEDICARE ==
[2020-04-11] VITALS (8 sets, daily range): BP systolic 143–176; BP diastolic 59–84
[~2020-04-11] VITALS: Ht 190.5 cm; Wt 109.8 kg
[2020-04-11] MEDS ORDERED: normal saline 1000ml 1,000 ML IV PRN (07:45)
[2020-04-11] MEDS ORDERED: albumin 25% 100mL bottle x 1 IV PRN (07:45)
[2020-04-11] MEDS ORDERED: FURO-149 PO (08:28)
== END 2020-04-11 11:20 | disposition home or self-care (01) ==
LOC: SSTAY O 07:15
PROVIDERS: ATTEND Radiology Diagnostic Radiology
DX: R18.8 Other ascites (principal); M10.9 Gout, unspecified; E03.9 Hypothyroidism, unspecified; E11.9 Type 2 diabetes mellitus without complications; K21.9 Gastro-esophageal reflux disease without esophagitis; K74.60 Unspecified cirrhosis of liver; I10 Essential (primary) hypertension; E83.111 Hemochromatosis due to repeated red blood cell transfusions; D69.6 Thrombocytopenia, unspecified; Z79.899 Other long term (current) drug therapy; Z80.52 Family history of malignant neoplasm of bladder
CPT/HCPCS: 49083; P9047

== ENCOUNTER 2020-04-18 07:45 | Day surgery (SDC) | payer MEDICARE ==
[~2020-04-18] VITALS: Ht 190.5 cm; Wt 104.6 kg
[~2020-04-18 07:45] MED LIST changes: -CEFD300C3 PO; +FURO-149 PO
[2020-04-18] MEDS ORDERED: albumin 25% 100mL bottle x 1 IV PRN (08:05)
[2020-04-18] MEDS ORDERED: normal saline 1000ml 1,000 ML IV PRN (08:05)
[2020-04-18 08:06] VITALS: BP 144/67
[2020-04-18] MEDS ORDERED: CEPH500C5 PO (08:08)
[2020-04-18] MEDS ORDERED: METR-159 PO (08:08)
[2020-04-18 08:30] VITALS: BP 151/88
[2020-04-18 08:45] VITALS: BP 144/62
[2020-04-18 09:00] VITALS: BP 144/62
[2020-04-18 09:15] VITALS: BP 144/62
[2020-04-18 09:30] VITALS: BP 130/69
== END 2020-04-18 09:35 | disposition home or self-care (01) ==
LOC: SSTAY O 07:45
PROVIDERS: ATTEND Radiology Diagnostic Radiology
DX: R18.8 Other ascites (principal); M10.9 Gout, unspecified; E03.9 Hypothyroidism, unspecified; E11.9 Type 2 diabetes mellitus without complications; K21.9 Gastro-esophageal reflux disease without esophagitis; K74.60 Unspecified cirrhosis of liver; I10 Essential (primary) hypertension; E83.111 Hemochromatosis due to repeated red blood cell transfusions; D69.6 Thrombocytopenia, unspecified; Z79.899 Other long term (current) drug therapy
CPT/HCPCS: 49083

== ENCOUNTER 2020-04-28 07:34 | Day surgery (SDC) | payer MEDICARE ==
[2020-04-28] VITALS (7 sets, daily range): BP systolic 133–173; BP diastolic 61–85
[~2020-04-28] VITALS: Ht 190.5 cm; Wt 98.0 kg
[~2020-04-28 07:34] MED LIST changes: +CEPH500C5 PO; +METR-159 PO
[2020-04-28] MEDS ORDERED: normal saline 1000ml 1,000 ML IV PRN (07:55)
[2020-04-28] MEDS ORDERED: albumin 25% 100mL bottle x 1 IV PRN (07:55)
[2020-04-28] MEDS ORDERED: TEST1.25 TD (08:23)
[2020-04-28] MEDS ORDERED: LOSA50TA3 PO (08:23)
[2020-04-28] MEDS ORDERED: SAXA5TAB PO (08:23)
[2020-04-28] MEDS ORDERED: ZINC220C12 PO (08:23)
[2020-04-28] MEDS ORDERED: SPIR50TA5 PO (08:23)
== END 2020-04-28 10:20 | disposition home or self-care (01) ==
LOC: SSTAY O 07:34
PROVIDERS: ATTEND Radiology Vascular & Interventional Radiology
DX: R18.8 Other ascites (principal); D69.59 Other secondary thrombocytopenia; M10.9 Gout, unspecified; E11.9 Type 2 diabetes mellitus without complications; E03.9 Hypothyroidism, unspecified; K21.9 Gastro-esophageal reflux disease without esophagitis; K74.60 Unspecified cirrhosis of liver; E83.111 Hemochromatosis due to repeated red blood cell transfusions; Z79.899 Other long term (current) drug therapy; Z80.52 Family history of malignant neoplasm of bladder
CPT/HCPCS: 49083

== ENCOUNTER 2020-06-05 14:34 | Emergency (ER) | payer MEDICARE ==
[~2020-06-05] VITALS: Ht 190.5 cm; Wt 77.3 kg
[~2020-06-05 14:34] MED LIST changes: -CEPH500C5 PO; -CHLO25TA22 PO; -FLUC100T9 PO; +LOSA50TA3 PO; -METR-159 PO; -ONDA-103 PO; +SAXA5TAB PO; +SPIR50TA5 PO; +TEST1.25 TD; +ZINC220C12 PO
[2020-06-05 15:24] LABS: BASOPHILS % (AUTO) 0.9 % (0-1); EOSINOPHILS # (AUTO) 0.5 X10'3 (0-0.9); EOSINOPHILS % (AUTO) 9.7 % (0-6); HEMATOCRIT 29.8 % (42.0-52.0); HEMOGLOBIN 10.2 g/dl (14.0-17.9); LYMPHOCYTES # (AUTO) 0.8 X10'3 (1.1-4.8); LYMPHOCYTES % (AUTO) 17.6 % (21-51); MEAN CORPUSCULAR HEMOGLOBIN 32.8 PG (27.0-31.0); MEAN CORPUSCULAR HGB CONC 34.1 g/dL (33.0-36.5); MEAN CORPUSCULAR VOLUME 96.1 FL (78-98); MEAN PLATELET VOLUME 9.3 FL (7.4-10.4); MONOCYTES # (AUTO) 0.5 X10'3 (0-0.9); MONOCYTES % (AUTO) 11.4 % (2-12); NEUTROPHILS # (AUTO) 2.9 X10'3 (1.8-7.7); NEUTROPHILS % (AUTO) 60.4 % (42-75); PLATELET COUNT 89 X10'3 (140-440); WHITE BLOOD COUNT 4.8 X10'3 (4.5-11.0)
[2020-06-05 15:46] LABS: ALANINE AMINOTRANSFERASE 29 U/L (12-78); ALBUMIN 2.8 G/DL (3.4-5.0); ALBUMIN/GLOBULIN RATIO 0.6 (1.1-1.5); ALKALINE PHOSPHATASE 209 IU/L (46-116); AMYLASE 92 U/L (25-115); ANION GAP 12 (8-16); ASPARTATE AMINO TRANSFERASE 40 U/L (10-37); BILIRUBIN,TOTAL 2.9 MG/DL (0.1-1.0); BLOOD UREA NITROGEN 33 MG/DL (7-18); BUN/CREATININE RATIO 27.7 (5.4-32.0); CALCIUM 9.3 MG/DL (8.5-10.1); CHLORIDE 105 MMOL/L (99-107); CREATININE 1.19 MG/DL (0.60-1.10); GLUCOSE 142 MG/DL (70-104); LIPASE 470 U/L (73-393); POTASSIUM 4.3 MMOL/L (3.5-5.1); SODIUM 140 MMOL/L (135-145); TOTAL CARBON DIOXIDE 23.5 MMOL/L (24-32); TOTAL PROTEIN 7.8 G/DL (6.4-8.2); eGFR 60 ML/MIN
[2020-06-05 16:04] LABS: PLATELET ESTIMATE DECREASED
[2020-06-05 16:09] LABS: ANISOCYTOSIS 3+; MICROCYTOSIS FEW
[2020-06-05 16:10] LABS: ELLIPTOCYTES 1+; ROULEAUX 1+; SCHISTOCYTES FEW; TEAR DROP CELLS 1+
[2020-06-05] MEDS ORDERED: proCHLORperazine 10 MG/2 ml inj IV ONE (16:25)
[2020-06-05] MEDS ORDERED: lactulose 20gm/30ml cup PO ONE (18:20)
[2020-06-05 18:58] VITALS: BP 141/74
[2020-06-06] MEDS ORDERED: TEST75GE TD (14:59)
== END 2020-06-05 19:00 | disposition home or self-care (01) ==
LOC: ER 14:35
DX: R11.2 Nausea with vomiting, unspecified (principal); E72.20 Disorder of urea cycle metabolism, unspecified; I10 Essential (primary) hypertension; J44.9 Chronic obstructive pulmonary disease, unspecified; E11.9 Type 2 diabetes mellitus without complications; Z98.890 Other specified postprocedural states; Z79.899 Other long term (current) drug therapy
CPT/HCPCS: 36415; 74176; 80053; 82140; 82150; 83690; 83880; 84484; 85008; 85025; 93005; 99285; J0780